=== PATIENT | female | born 1965 | race Caucasian/White ===

== ENCOUNTER 2016-09-03 17:44 | Observation (INO) | payer BC ==
[2016-09-03 18:36] LABS: Hematocrit 42 % (35-47); Hemoglobin 13.8 g/dl (12.0-16.0); Mean Corpuscular HGB Conc 33 g/dl (31-36); Mean Corpuscular Hemoglobin 30 pg (27-31); Mean Corpuscular Volume 92 fL (80-97); Mean Platelet Volume 7 um3 (7.4-10.4); Red Blood Count 4.53 10^6/ul (4.0-5.4); Red Cell Distribution Width 13 % (10.5-15); White Blood Count 6.3 10^3/ul (3.5-10.8)
[2016-09-03 18:57] LABS: Troponin I 0.01 ng/mL (<0.04)
[2016-09-03 18:58] LABS: Albumin 4.6 g/dL (3.2-5.2); BUN/Creatinine Ratio 15.7 (8-20); Calcium 9.3 mg/dL (8.6-10.3); EGFR Non-African American 87.9 (>60); Globulin 2.7 g/dL (2-4); Potassium 3.5 mmol/L (3.5-5.0); Total Bilirubin 0.5 mg/dL (0.2-1.0); Total Protein 7.3 g/dL (6.4-8.9)
--- NOTE | 2016-09-03 19:04 | RAD ---
HISTORY: Chest pain, pneumonia, CHF COMPARISONS: None VIEWS: 2: Frontal dual-energy and lateral views of the chest. FINDINGS: CARDIOMEDIASTINAL SILHOUETTE: The cardiomediastinal silhouette is normal. SEBASTIAN: The sebastian are normal. PLEURA: The costophrenic angles are sharp. No pleural abnormalities are noted. LUNG PARENCHYMA: The lungs are clear. ABDOMEN: The upper abdomen is clear. There is no subphrenic gas. BONES AND SOFT TISSUES: No bone or soft tissue abnormalities are noted. OTHER: None. IMPRESSION: NO ACTIVE CARDIOPULMONARY DISEASE.
--- NOTE | 2016-09-03 19:21 | ED ---
Jh Mendoza Billy, scribed for Elie Lainez MD on 09/03/16 at 1816 . HPI Chest Pain - HPI Summary HPI Summary: Patient is a 50 year-old female coming to [facility] for evaluation of intermittent left anterior chest pain for the last several days, worse since 1330 today. Patient describes each episode of chest tightness lasting approximately 5 minutes followed by periods of dull burning pain in between. Pain is nonradiating and it seems to have no known cause or triggers; it is unassociated with food, rest, or exertion. She has not woken up from sleep due to this pain. She denies any swelling in the legs, but she states that her calves feel "tight." Patient has a history of SBO 1 year ago and a history of Lyme disease several years ago, but is otherwise generally quite healthy. To her knowledge, she has no first-degree relatives with heart disease or blood clots. - History of Current Complaint Chief Complaint: EDChestWallPain Time Seen by Provider: 09/03/16 18:01 Hx Obtained From: Patient Onset/Duration: Started Days Ago, Still Present, Worse Since - 1330 Time of Onset: 13:30 Timing: Intermittent Initial Severity: Moderate Current Severity: Moderate Pain Intensity: 3 Pain Scale Used: 0-10 Numeric Chest Pain Location: Left Anterior Chest Pain Radiates: No Character: Burning, Dull/Aching, Tightness Aggravating Factor(s): Nothing Alleviating Factor(s): Nothing Associated Signs and Symptoms: Positive: Chest Pain, Other: - calf "tightness". Negative: Shortness of Breath, Calf Pain/Swelling - Allergy/Home Medications Allergies/Adverse Reactions: Allergies Allergy/AdvReac Type Severity Reaction Status Date / Time Aspirin Allergy GI Upset Verified 09/03/16 18:19 PMH/Surg Hx/FS Hx/Imm Hx Endocrine/Hematology History: Denies: Hx Diabetes Cardiovascular History: Denies: Hx Hypercholesterolemia, Hx Hypertension, Hx Myocardial Infarction GI History: Reports: Hx Obstructive Bowel - SBO in 2016 Infectious Disease History: No Infectious Disease History: Denies: Traveled Outside the [place] in Last 30 Days - Family History Family History: Father of a stroke at age 70. Mother with a history of hypertension. To the patient's knowledge, no first-degree relatives with history of heart disease or blood clots. - Social History Occupation: Employed Full-time Lives: With Family Alcohol Use: Occasionally Hx Substance Use: No Substance Use Type: Reports: None Hx Tobacco Use: No Smoking Status (MU): Never Smoked Tobacco Review of Systems Positive: Palpitations, Chest Pain Negative: Shortness Of Breath Positive: Other - calves feel "tight". Negative: Edema All Other Systems Reviewed And Are Negative: Yes Physical Exam - Summary Physical Exam Summary: The patient is well-nourished in no acute distress and in no acute pain. The skin is warm and dry and skin color reflects adequate perfusion. HEENT: The head is normocephalic and atraumatic. The pupils are equal and reactive. The conjunctivae are clear and without drainage. Nares are patent and without drainage. Mouth reveals moist mucous membranes and the throat is without erythema and exudate. The external ears are intact. The ear canals are patent and without drainage. The tympanic membranes are intact. Neck is supple with full range of motion and non-tender. There are no carotid bruits. There is no neck vein distension. Respiratory: Chest is non-tender. Lungs are clear to auscultation and breath sounds are symmetrical and equal. Cardiovascular: Hear is regular rate and rhythm. Positive murmur. There is no peripheral edema and pulses are symmetrical and equal. Abdomen: The abdomen is soft and non-tender. There are normal bowel sounds heard in all four quadrants and there is no organomegaly palpated. Musculoskeletal: There is no back pain noted. Extremities are non-tender with full range of motion. There is good capillary refill. There is no peripheral edema or calf tenderness elicited. Neurological: Patient is alert and oriented to person, place and time. The patient has symmetrical motor strength in all four extremities. Psychiatric: The patient has an appropriate affect and does not exhibit any anxiety or depression. Triage Information Reviewed: Yes Vital Signs On Initial Exam: Initial Vitals Temp Pulse Resp BP Pulse Ox 97.4 F 79 18 157/89 100 09/03/16 17:46 09/03/16 17:46 09/03/16 17:46 09/03/16 17:46 09/03/16 17:46 Vital Signs Reviewed: Yes Diagnostics - Vital Signs Vital Signs Temp Pulse Resp BP Pulse Ox 09/03/16 18:09 98.8 F 71 20 152/94 99 09/03/16 17:46 97.4 F 79 18 157/89 100 - Laboratory Lab Results: Lab Results 09/03/16 09/03/16 09/03/16 Range/Units 18:25 18:25 18:25 WBC 6.3 (3.5-10.8) 10^3/ul RBC 4.53 (4.0-5.4) 10^6/ul Hgb 13.8 (12.0-16.0) g/dl Hct 42 (35-47) % MCV 92 (80-97) fL MCH 30 (27-31) pg MCHC 33 (31-36) g/dl RDW 13 (10.5-15) % Plt Count 307 (150-450) 10^3/ul MPV 7 L (7.4-10.4) um3 Neut % (Auto) 59.1 (38-83) % Lymph % (Auto) 32.1 (25-47) % Trimble % (Auto) 7.2 (1-9) % Eos % (Auto) 1.2 (0-6) % Baso % (Auto) 0.4 (0-2) % Absolute Neuts (auto) 3.7 (1.5-7.7) 10^3/ul Absolute Lymphs (auto) 2.0 (1.0-4.8) 10^3/ul Absolute Monos (auto) 0.4 (0-0.8) 10^3/ul Absolute Eos (auto) 0.1 (0-0.6) 10^3/ul Absolute Basos (auto) 0 (0-0.2) 10^3/ul Absolute Nucleated RBC 0 10^3/ul Nucleated RBC % 0 INR (Anticoag Therapy) (0.89-1.11) D-Dimer, Quantitative (Less Than 230) ng/mL Sodium 140 (133-145) mmol/L Potassium 3.5 (3.5-5.0) mmol/L Chloride 106 (101-111) mmol/L Carbon Dioxide 26 (22-32) mmol/L Anion Gap 8 (2-11) mmol/L BUN 11 (6-24) mg/dL Creatinine 0.70 (0.51-0.95) mg/dL Est GFR ( Amer) 113.0 (>60) Est GFR (Non-Af Amer) 87.9 (>60) BUN/Creatinine Ratio 15.7 (8-20) Glucose 93 (70-100) mg/dL Lactic Acid 0.7 (0.5-2.0) mmol/L Calcium 9.3 (8.6-10.3) mg/dL Total Bilirubin 0.50 (0.2-1.0) mg/dL AST 20 (13-39) U/L ALT 10 (7-52) U/L Alkaline Phosphatase 81 (34-104) U/L Troponin I 0.01 (<0.04) ng/mL B-Natriuretic Peptide ( - 100) pg/mL Total Protein 7.3 (6.4-8.9) g/dL Albumin 4.6 (3.2-5.2) g/dL Globulin 2.7 (2-4) g/dL Albumin/Globulin Ratio 1.7 (1-3) 09/03/16 09/03/16 Range/Units 18:25 18:25 WBC (3.5-10.8) 10^3/ul RBC (4.0-5.4) 10^6/ul Hgb (12.0-16.0) g/dl Hct (35-47) % MCV (80-97) fL MCH (27-31) pg MCHC (31-36) g/dl RDW (10.5-15) % Plt Count (150-450) 10^3/ul MPV (7.4-10.4) um3 Neut % (Auto) (38-83) % Lymph % (Auto) (25-47) % Trimble % (Auto) (1-9) % Eos % (Auto) (0-6) % Baso % (Auto) (0-2) % Absolute Neuts (auto) (1.5-7.7) 10^3/ul Absolute Lymphs (auto) (1.0-4.8) 10^3/ul Absolute Monos (auto) (0-0.8) 10^3/ul Absolute Eos (auto) (0-0.6) 10^3/ul Absolute Basos (auto) (0-0.2) 10^3/ul Absolute Nucleated RBC 10^3/ul Nucleated RBC % INR (Anticoag Therapy) 0.90 (0.89-1.11) D-Dimer, Quantitative 217 (Less Than 230) ng/mL Sodium (133-145) mmol/L Potassium (3.5-5.0) mmol/L Chloride (101-111) mmol/L Carbon Dioxide (22-32) mmol/L Anion Gap (2-11) mmol/L BUN (6-24) mg/dL Creatinine (0.51-0.95) mg/dL Est GFR ( Amer) (>60) Est GFR (Non-Af Amer) (>60) BUN/Creatinine Ratio (8-20) Glucose (70-100) mg/dL Lactic Acid (0.5-2.0) mmol/L Calcium (8.6-10.3) mg/dL Total Bilirubin (0.2-1.0) mg/dL AST (13-39) U/L ALT (7-52) U/L Alkaline Phosphatase (34-104) U/L Troponin I (<0.04) ng/mL B-Natriuretic Peptide 39 ( - 100) pg/mL Total Protein (6.4-8.9) g/dL Albumin (3.2-5.2) g/dL Globulin (2-4) g/dL Albumin/Globulin Ratio (1-3) Result Diagrams: 09/03/16 18:25 09/03/16 18:25 Lab Statement: Any lab studies that have been ordered have been reviewed, and results considered in the medical decision making process. - Radiology CXR Xray Interpretation: No Acute Changes Radiology Interpretation Completed By: Radiologist - EKG 180 EKG Interpretation: NSR 61 bpm, normal axis, no STEMI Re-Evaluation - Re-Evaluation First Eval Re-Evaluation Time: 19:03 Comment: Labs reviewed. Patient agrees with plan for admission. Chest Pain Course/Dx - Course Assessment/Plan: 50 year-old female coming to [facility] with complaint of chest pain for the last several days. CXR shows no acute disease. EKG shows NSR with no STEMI. Labs reviewed, troponin 0.01. Patient care discussed with Arlyn Roth NP, who will be admitting the patient to [facility]. - Chest Pain Differential Diagnosis/HQI/PQRI: Acute IL, ACS, Chest Wall, GI Disease, Lower Respiratory Infection, Pulmonary Embolism - Diagnoses Provider Diagnoses: Chest pain - Provider Notifications Discussed Care Of Patient With: Arlyn Roth NP (hospitalist) @ 1903: accepts admission. Discharge - Discharge Plan Condition: Stable Disposition: ADMITTED TO [facility] Referrals: No Primary Care Phys,NOPCP [Primary Care Provider] - The documentation as recorded by the Jh alvarenga Billy accurately reflects the service I personally performed and the decisions made by me, Elie Lainez MD.
[2016-09-03] MEDS ORDERED: Aspirin TAB* 325 MG PO ONE (19:38)
--- NOTE | 2016-09-03 23:48 | HP ---
MEDICINE HISTORY AND PHYSICAL: DATE OF ADMISSION: 09/03/16 PROVIDER: Castillo Chowdary NP ATTENDING PHYSICIAN: Leona Gonzales MD *(dictated by Castillo Chowdary NP) PRIMARY CARE PHYSICIAN: No local primary care physician. CHIEF COMPLAINT: Chest pain. HISTORY OF PRESENT ILLNESS: Ms. Page is a 50-year-old female with no significant past medical history of Lyme disease. She came in to the ER for evaluation of chest tightness. Ms. Page described pressure and squeezing around her heart and states that it feels like a tightness and warmth at the site of her heart and around the area surrounding it. This started at approximately 1:30 this afternoon. She notices it under her left breast and denies any radiation to any other locations including shoulders, back, jaw, or arms. The pain comes and goes and lasts for a couple of minutes. She cannot differentiate whether it is better with activity or rest, but notices it at both times. The tightness lasts for about 5 minutes and then scales down to a dull burning sensation. She also describes some sensation of having a racing heartbeat as well as skipping beats and some accompanying dizziness this afternoon with the episode. She reports heart palpitations in the past and states today was different due to the extent of the tightness she was feeling. She denies any nausea, vomiting, or diaphoresis. She denies any recent illness or subjective fevers or chills. Her only complaint was a sinus infection approximately 1 to 2 weeks ago. She denies any shortness of breath, cough, abdominal pain, nausea, vomiting, or diarrhea. She denies any focal weakness, tingling, numbness, sensory loss. She denies any vision, hearing or swallowing complaints. Denies any joint pains or muscle pains, rashes or lesions. The patient states that she had Lyme disease approximately 8 years ago that was treated, and her last hospitalization was for a small bowel obstruction that occurred last year around the same time. During that admission, she had noted that she had episodes of racing heartbeats and she states that she was put on a Holter monitor for 24 hours with no significant findings. The patient and her have recently moved up to the [facility] from [place], [place]. PAST MEDICAL HISTORY: 1. Lyme disease, occurred approximately 8 years ago. 2. History of small bowel obstruction. HOME MEDICATIONS: None. ALLERGIES: The patient lists ASPIRIN as an allergy, which is actually an adverse reaction causing GI upset. FAMILY HISTORY: She does not know of any family members with any history of coronary artery disease or MIs. She does not know of any family members with history of blood clots. She does report a mother with hypertension and that her father had of a stroke. SOCIAL HISTORY: She denies any current or former tobacco use. She reports rare alcohol use. She denies any drug use. 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 She is . Her , Ashok Page, is her surrogate decision maker and he brought her to the emergency. REVIEW OF SYSTEMS: A 14-point review of systems was completed. All pertinent positives and negatives are included in the HPI, all others were negative. PHYSICAL EXAMINATION GENERAL: Ms. Page is a 50-year-old female who is lying in the ED stretcher , in no acute distress. VITAL SIGNS: Temperature 98.8, heart rate 52, respiratory rate 15, blood pressure 142/82, and O2 saturation 99% on room air. HEENT: Head is atraumatic, normocephalic. Face is symmetrical. Pupils are equal and reactive to light and accommodation. Sclerae are anicteric. External ears and nose are normal. Oral mucosa appears moist. There is no oropharyngeal erythema or exudate. NECK: Supple with full range of motion. No lymphadenopathy noted. There are no carotid bruits. There is no JVD noted. RESPIRATORY: Chest is nontender to palpation. Lung are clear to auscultation. CARDIAC: S1, S2 heart sounds, regular rate and rhythm. No murmurs, rubs, or gallops. No peripheral edema is noted. Distal pulses are 2+. ABDOMEN: Soft, nontender, nondistended. Bowel sounds are present times all 4 quadrants. MUSCULOSKELETAL: There is no clubbing or cyanosis. The patient has full range of motion. SKIN: Limited examination, but appears grossly intact. NEUROLOGIC: The patient is alert and oriented x3. Cranial nerves II through XII are grossly intact. She moves all extremities. Sensation is intact to light touch to the lower extremities. PSYCH: Her affect is appropriate. LABORATORY DATA/DIAGNOSTIC STUDIES: CBC: WBC is 6.3, hemoglobin 13.8, hematocrit 42, platelet count 307. INR 0.9. D-dimer 217. CMP: Sodium 140, potassium 3.5, chloride 106, carbon dioxide 26, BUN 11, creatinine 0.7, glucose 73. Lactic acid 0.7. Calcium 9.3, total bilirubin 0.5, AST 20, ALT 10, alk phos 81. Troponin 0.01. BNP 39. Albumin 4.6. The patient's EKG shows sinus rhythm with no ischemic changes. Her chest x-ray shows no acute pathology. There are no old medical records for review. ASSESSMENT AND PLAN: Ms. Page is a 50-year-old female with no significant past medical history, who presents today with complaints of chest pain. Our plan is to admit her under observation. Recommendations are as follows: 1. Chest pain. Admit to telemetry in observation status. We will trend her troponins, obtain a stress test in the morning. The patient is low in risk factors with a BELKIS score of 0; however, due to she recently moved up here, she has no local PCP, it appears that she will not be able to follow up in the near future. We will go ahead and have her perform a stress test here while admitted. She also gives a story that sounds as if she has perhaps some ectopy or arrhythmias. However, nothing has been noted in the ER. We will continue to monitor on telemetry and see if this is the case. I did discuss with the patient that it will be beneficial for her to establish a PCP locally as she would most likely benefit from outpatient Holter monitor to further evaluate for these periods of skipped and racing heartbeats. As she does not have a PCP , the patient and her are concerned about their insurance and the coverage here locally, I have ordered a Social Work consult to assist with this. Currently, the patient's troponin is negative and there are no EKG changes of concern. We will recheck an EKG in the morning as well as lipid profile and continue to monitor. The patient will be n.p.o. after midnight for the stress test. I did also order aspirin and discussed this with Nursing. The patient had at first declined the aspirin as she has it listed as an allergy ; however, her main complaint with aspirin is GI upset. I discussed if she was able to take this with food, this would be beneficial as it is a standard of care for cardiac workup. 2. DVT prophylaxis. The patient is a 1 on DVT risk assessment, which is low risk. She is ordered KAREN stockings. 3. FEN. She is ordered a heart healthy diet and she will be n.p.o. after midnight. 4. Code status. She is a full code. TIME SPENT: Time spent on the admission was approximately 50 minutes, more than half the time was spent [id number] with the patient obtaining history and physical, performing the physical examination, and reviewing the plan of care. Plan of care was also reviewed with my attending, Dr. Gonzales, who is in agreement. CASTILLO CHOWDARY, EDGE STRIPPER [id number]/CPS #: [id number] [place]
[2016-09-04 05:15] LABS: HDL Cholesterol 53.5 mg/dL
[2016-09-04] MEDS ORDERED: Acetaminophen TAB* 325 MG PO PRN (06:41)
--- NOTE | 2016-09-04 08:14 | PN ---
Subjective Date of Service: 09/04/16 Interval History: Patient seen and examined at bedside. She denies any further episode of racing heartbeat, palpitations, chest tightness/squeezing overnight. Denies fever/ chills, SOB, abd pain, n/v. She is sleeping intermittently in room. No acute concerns from nursing. Telemetry: SR 60s Family History: Unchanged from Admission Social History: Unchanged from Admission Past Medical History: Unchanged from Admission Objective Active Medications: Acetaminophen (Tylenol Tab*) 650 mg PO Q4H PRN PRN Reason: PAIN/FEVER Last Admin: 09/04/16 06:47 Dose: 650 mg Aspirin (Aspirin Low Dose Tab*) 81 mg PO DAILY CAMPOS Vital Signs 09/03/16 09/03/16 09/03/16 19:30 19:35 19:47 Temperature 97.8 F Pulse Rate 66 60 67 Respiratory 17 16 12 Rate Blood Pressure 123/81 131/76 (mmHg) O2 Sat by Pulse 99 100 97 Oximetry 09/03/16 09/03/16 09/04/16 20:00 23:29 03:36 Temperature 98.4 F 98.3 F Pulse Rate 62 59 61 Respiratory 20 20 20 Rate Blood Pressure 135/79 109/66 109/71 (mmHg) O2 Sat by Pulse 97 99 98 Oximetry Oxygen Devices in Use Now: None Appearance: Female patient, lying in bed, in NAD Eyes: PERRLA Ears/Nose/Mouth/Throat: Clear Oropharnyx, Mucous Membranes Moist Neck: NL Appearance and Movements; NL JVP Respiratory: Symmetrical Chest Expansion and Respiratory Effort, Clear to Auscultation Cardiovascular: NL Sounds; No Murmurs; No JVD, RRR Abdominal: NL Sounds; No Tenderness; No Distention Extremities: No Edema, No Clubbing, Cyanosis Skin: No Rash or Ulcers Neurological: Alert and Oriented x 3 Lines/Tubes/Other Access: Clean, Dry and Intact Peripheral IV Result Diagrams: 09/03/16 18:25 09/03/16 18:25 Additional Lab and Data: Lab Results 09/03/16 09/03/16 09/03/16 Range/Units 18:25 18:25 18:25 WBC 6.3 (3.5-10.8) 10^3/ul RBC 4.53 (4.0-5.4) 10^6/ul Hgb 13.8 (12.0-16.0) g/dl Hct 42 (35-47) % MCV 92 (80-97) fL MCH 30 (27-31) pg MCHC 33 (31-36) g/dl RDW 13 (10.5-15) % Plt Count 307 (150-450) 10^3/ul MPV 7 L (7.4-10.4) um3 Neut % (Auto) 59.1 (38-83) % Lymph % (Auto) 32.1 (25-47) % Brown % (Auto) 7.2 (1-9) % Eos % (Auto) 1.2 (0-6) % Baso % (Auto) 0.4 (0-2) % Absolute Neuts (auto) 3.7 (1.5-7.7) 10^3/ul Absolute Lymphs (auto) 2.0 (1.0-4.8) 10^3/ul Absolute Monos (auto) 0.4 (0-0.8) 10^3/ul Absolute Eos (auto) 0.1 (0-0.6) 10^3/ul Absolute Basos (auto) 0 (0-0.2) 10^3/ul Absolute Nucleated RBC 0 10^3/ul Nucleated RBC % 0 INR (Anticoag Therapy) (0.89-1.11) D-Dimer, Quantitative (Less Than 230) ng/mL Sodium 140 (133-145) mmol/L Potassium 3.5 (3.5-5.0) mmol/L Chloride 106 (101-111) mmol/L Carbon Dioxide 26 (22-32) mmol/L Anion Gap 8 (2-11) mmol/L BUN 11 (6-24) mg/dL Creatinine 0.70 (0.51-0.95) mg/dL Est GFR ( Amer) 113.0 (>60) Est GFR (Non-Af Amer) 87.9 (>60) BUN/Creatinine Ratio 15.7 (8-20) Glucose 93 (70-100) mg/dL Lactic Acid 0.7 (0.5-2.0) mmol/L Calcium 9.3 (8.6-10.3) mg/dL Total Bilirubin 0.50 (0.2-1.0) mg/dL AST 20 (13-39) U/L ALT 10 (7-52) U/L Alkaline Phosphatase 81 (34-104) U/L Troponin I 0.01 (<0.04) ng/mL B-Natriuretic Peptide ( - 100) pg/mL Total Protein 7.3 (6.4-8.9) g/dL Albumin 4.6 (3.2-5.2) g/dL Globulin 2.7 (2-4) g/dL Albumin/Globulin Ratio 1.7 (1-3) 09/03/16 09/03/16 Range/Units 18:25 18:25 WBC (3.5-10.8) 10^3/ul RBC (4.0-5.4) 10^6/ul Hgb (12.0-16.0) g/dl Hct (35-47) % MCV (80-97) fL MCH (27-31) pg MCHC (31-36) g/dl RDW (10.5-15) % Plt Count (150-450) 10^3/ul MPV (7.4-10.4) um3 Neut % (Auto) (38-83) % Lymph % (Auto) (25-47) % Brown % (Auto) (1-9) % Eos % (Auto) (0-6) % Baso % (Auto) (0-2) % Absolute Neuts (auto) (1.5-7.7) 10^3/ul Absolute Lymphs (auto) (1.0-4.8) 10^3/ul Absolute Monos (auto) (0-0.8) 10^3/ul Absolute Eos (auto) (0-0.6) 10^3/ul Absolute Basos (auto) (0-0.2) 10^3/ul Absolute Nucleated RBC 10^3/ul Nucleated RBC % INR (Anticoag Therapy) 0.90 (0.89-1.11) D-Dimer, Quantitative 217 (Less Than 230) ng/mL Sodium (133-145) mmol/L Potassium (3.5-5.0) mmol/L Chloride (101-111) mmol/L Carbon Dioxide (22-32) mmol/L Anion Gap (2-11) mmol/L BUN (6-24) mg/dL Creatinine (0.51-0.95) mg/dL Est GFR ( Amer) (>60) Est GFR (Non-Af Amer) (>60) BUN/Creatinine Ratio (8-20) Glucose (70-100) mg/dL Lactic Acid (0.5-2.0) mmol/L Calcium (8.6-10.3) mg/dL Total Bilirubin (0.2-1.0) mg/dL AST (13-39) U/L ALT (7-52) U/L Alkaline Phosphatase (34-104) U/L Troponin I (<0.04) ng/mL B-Natriuretic Peptide 39 ( - 100) pg/mL Total Protein (6.4-8.9) g/dL Albumin (3.2-5.2) g/dL Globulin (2-4) g/dL Albumin/Globulin Ratio (1-3) Assess/Plan/Problems-Billing Assessment: Ms. Page is a 50 yo female with a PMH of lyme disease (8 years ago) and SBO who presented to the ED on 09/03/16 with concern for chest pain and racing heartbeat. - Patient Problems (1) Chest pain Code(s): R07.9 - CHEST PAIN, UNSPECIFIED Comment: Somewhat atypical in presentation, with accompanying c/o racing heartbeat/ "skipped beats" Troponins negative, no ischemic changes to EKG Stress test today: no chest pain or EKG changes for ischemia, no wall motion abnormalities, no defects of stress-induced or fixed nature. Patient likely to benefit from outpatient Holter monitor. (2) DVT prophylaxis Code(s): ODM8047 - Comment: Early ambulation TEDs Status and Disposition: OBV admit. D/c to home when medically stable.
[2016-09-04] MEDS ORDERED: Aspirin Low Dose CHEW TAB* 81 MG PO SCH (09:00)
--- NOTE | 2016-09-04 11:45 | RAD ---
INDICATION: Chest pain COMPARISON: None TECHNIQUE: A single day SPECT protocol was utilized. Rest images were acquired following the intravenous injection of 10.1 millicuries of technetium 99m tetrofosmin. Exercise stress images were acquired following the intravenous administration of 25.6 millicuries of technetium 99m tetrofosmin. The patient was exercised to a peak heart rate of 159 which is 95% of age predicted maximum. FINDINGS: There are no defects of the stress-induced or fixed nature. The cardiac chamber size is normal. There are no wall motion abnormalities. The ejection fraction is calculated at 73 percent during stress. IMPRESSION: NEGATIVE EXAMINATION ASSESSMENT: LOW-RISK Based on imaging criteria from ACC/AHA 2002 Guideline Update for the Management of Patients With Chronic Stable Angina Table 23. Noninvasive Risk Stratification.
[2016-09-04 14:12] VITALS: BP 108/67
--- NOTE | 2016-09-05 04:42 | DS ---
AMENDED REPORT NOW INCLUDES COSIGNER - ESIGNED BEFORE ADJUSTMENT MEDICINE DISCHARGE SUMMARY: DATE OF ADMISSION: 09/03/16 DATE OF DISCHARGE: 09/04/16 PROVIDER: Castillo Roth NP ATTENDING PHYSICIAN: Dr. Danii Cullen *(as dictated by Castillo Roth NP). PRIMARY CARE PROVIDER: The patient does not have a PCP. PRIMARY DISCHARGE DIAGNOSIS: Chest pain. MEDICATIONS AT DISCHARGE: None. HOSPITAL COURSE OF STAY: For full details, please refer to the H and P provided on 09/03/16. In summary, Ms. Page is a 50-year-old female who was admitted to the ER with concern for chest pain, racing heart beat, and palpitations. It started approximately 1:30 in the afternoon on 09/03/16. The patient states that she has had previous symptoms like this but has never sought attention for it. This particular event was more severe than previous events, and she came into the ER for further evaluation. Her troponins were negative. However, we did admit her for observation overnight. No arrhythmic events were noted on telemetry, and there were no ectopic events noted as well. The patient did undergo a stress test, which showed a baseline EKG with normal sinus rhythm. Below average workload but achieved more than 85% of MPHR. No chest pain. No arrhythmias. No ST-T changes for ischemia. Her nuclear medicine scan portion of stress test showed no defects of the stress induced or fixed nature. No wall motion abnormalities. Her ejection fraction was calculated at 73% during stress, negative examination, and low risk. The patient has had no further events of racing heart beat, palpitations, or chest pain here in the hospital. We did discuss having the patient pursue an outpatient Holter monitor with her PCP, which she is in agreement with. Due to recent relocation to the region, the patient does not yet have a PCP. Our Social Work and discharge planning department is working with the patient to help with her insurance and obtain a PCP. The patient was also given the physician referral information if she chooses to pursue this on her own. The patient was advised to follow up with her new PCP within 1 to 2 weeks. She was also advised to return to the ER if there are any concerning symptoms in the interim period if she is unable to establish with a PCP prior to that point. The patient verbalizes understanding. CONCERNS AT DISCHARGE: Ms. Page will be discharged to home on 09/04/16 with a plan to establish and follow up with a new PCP. Social Work and discharge planning team are meeting with the patient to help coordinate this. DIET: May resume previous diet. ACTIVITY: As tolerated. CONDITION: Stable. DISPOSITION: To home. TIME SPENT: Time spent on this discharge was approximately 40 minutes. Again, this is only a brief summary of the patient's hospital course of stay. For full details, please refer to the full medical record. If you have any further questions or any further assistance, please feel free to contact me at [place] [id number]/[facility] #: [id number] [facility]
== END 2016-09-04 15:15 | disposition home or self-care (01) ==
LOC: ED 17:44 → MEDTELE 19:03
PROVIDERS: ADMIT Internal Medicine; ATTEND Hospitalist
DX: R07.9 Chest pain, unspecified (principal); R42 Dizziness and giddiness; Z88.6 Allergy status to analgesic agent
CPT/HCPCS: 36415; 71020; 78452; 80053; 80061; 83605; 83880; 84484; 85025; 85379; 85610; 93005; 93017; 99283; A9270-GY; A9502; G0378

== ENCOUNTER 2018-01-09 03:48 | Inpatient (IN) | payer BC ==
[2018-01-09] MEDS ORDERED: NS 0.9% 1000 ML* 1,000 ML IV ONE ×2 (04:42→05:24)
[2018-01-09] MEDS ORDERED: Metoclopramide IV* 5 MG/ML 2 ML VIAL IV ONE (04:42)
[2018-01-09] MEDS ORDERED: Morphine INJ* 2 MG/ML 1 ML SYRINGE (TWO MG - NEW SYRINGE VERSION) IV ONE ×2 (04:42→05:24)
[2018-01-09] MEDS ORDERED: Morphine VIAL* 10 MG/ML 1 ML VIAL IV ONE (05:00)
[2018-01-09 05:05] LABS: ABS Basophils 0 10^3/ul (0-0.2); ABS Eosinophils 0 10^3/ul (0-0.6); ABS Lymphocytes 0.6 10^3/ul (1.0-4.8); ABS Monocytes 0.4 10^3/ul (0-0.8); ABS Neutrophils 5.8 10^3/ul (1.5-7.7); ABS Nucleated RBC 0 10^3/ul; Eosinophil % 0.2 % (0-6); Hematocrit 44 % (35-47); Lymphocyte % 9.3 % (25-47); Mean Corpuscular HGB Conc 34 g/dl (31-36); Mean Corpuscular Hemoglobin 31 pg (27-31); Mean Corpuscular Volume 91 fL (80-97); Mean Platelet Volume 6.8 um3 (7.4-10.4); Nucleated Red Blood Cells % 0; Platelet Count 272 10^3/ul (150-450); Red Blood Count 4.82 10^6/ul (4.00-5.40); Red Cell Distribution Width 13 % (10.5-15); White Blood Count 6.9 10^3/ul (3.5-10.8)
[2018-01-09 05:14] LABS: INR 0.89 (0.77-1.02)
[2018-01-09] MEDS ORDERED: Morphine VIAL* 10 MG/ML 1 ML VIAL ONE (05:39)
[2018-01-09] MEDS ORDERED: Benzocaine/Butamben/Tetracain* SPRAY TOPICAL ONE (05:50)
[2018-01-09] MEDS ORDERED: Iohexol 300* (CONTRAST) 10 ML SDV IV ONE (06:49)
--- NOTE | 2018-01-09 07:33 | ED ---
Abdominal Pain/Female - HPI Summary HPI Summary: This is colette Prajapati documenting for Dr. Osmany Fitzgerald. Pt is 52 y/o F who presents to ED c/o abdominal pain since 6 pm this evening. The pain does not radiate to back. Rates her pain as an 8/10 in severity. Notes vomiting and nausea. Last bowel movement yesterday morning. PMHx of SBO. PSHx of appendectomy. Physical exam revealed diffuse abdominal tenderness and hyperactive bowel sounds. - History of Current Complaint Chief Complaint: EDAbdPain Stated Complaint: SEVERE ABD PAIN Time Seen by Provider: 01/09/18 03:55 Hx Obtained From: Patient Onset/Duration: Lasting Hours Severity Currently: Severe Pain Intensity: 8 Pain Scale Used: 0-10 Numeric Radiates: No Associated Signs and Symptoms: Positive: Nausea, Vomiting Allergies/Adverse Reactions: Allergies Allergy/AdvReac Type Severity Reaction Status Date / Time aspirin Allergy Abdominal Verified 01/09/18 04:02 Pain PMH/Surg Hx/FS Hx/Imm Hx Endocrine/Hematology History: Reports: Other Endocrine/Hematological Disorders - lyme's disease Denies: Hx Diabetes Cardiovascular History: Reports: Hx Angina Denies: Hx Coronary Artery Disease, Hx Hypercholesterolemia, Hx Hypertension , Hx Myocardial Infarction, Hx Valvular Heart Disease Respiratory History: Denies: Hx Asthma, Hx Chronic Obstructive Pulmonary Disease (COPD) GI History: Reports: Hx Obstructive Bowel - SBO in 2016 Sensory History: Reports: Hx Contacts or Glasses Denies: Hx Hearing Aid Opthamlomology History: Reports: Hx Contacts or Glasses - Surgical History Surgery Procedure, Year, and Place: hernia repair Infectious Disease History: No Infectious Disease History: Denies: Traveled Outside the [place] in Last 30 Days - Family History Known Family History: Positive: Other - SBO Family History: Father of a stroke at age 70. Mother with a history of hypertension. To the patient's knowledge, no first-degree relatives with history of heart disease or blood clots. - Social History Alcohol Use: Weekly Alcohol Amount: 1 beer Hx Substance Use: No Substance Use Type: Reports: None Hx Tobacco Use: No Smoking Status (MU): Never Smoked Tobacco Review of Systems Positive: Abdominal Pain, Vomiting, Nausea Positive: Other - NEGATIVE: back pain All Other Systems Reviewed And Are Negative: Yes Physical Exam - Summary Physical Exam Summary: VITAL SIGNS: Reviewed. GENERAL: Patient is a well-developed and nourished female who is lying comfortable in the stretcher. Patient is not in any acute respiratory distress. HEAD AND FACE: No signs of trauma. No ecchymosis, hematomas or skull depressions. No sinus tenderness. EYES: PERRLA, EOMI x 2, No injected conjunctiva, no nystagmus. EARS: Hearing grossly intact. Ear canals and tympanic membranes are within normal limits. MOUTH: Oropharynx within normal limits. NECK: Supple, trachea is midline, no adenopathy, no JVD, no carotid bruit, no c- spine tenderness, neck with full ROM. CHEST: Symmetric, no tenderness at palpation LUNGS: Clear to auscultation bilaterally. No wheezing or crackles. CVS: Regular rate and rhythm, S1 and S2 present, no murmurs or gallops appreciated. ABDOMEN: Diffuse abdominal tenderness. No signs of distention. No rebound no guarding, and no masses palpated. Hyperactive bowel sounds. EXTREMITIES: FROM in all major joints, no edema, no cyanosis or clubbing. NEURO: Alert and oriented x 3. No acute neurological deficits. Speech is normal and follows commands. SKIN: Dry and warm Triage Information Reviewed: Yes Vital Signs On Initial Exam: Initial Vitals Temp Pulse Resp BP Pulse Ox 98.7 F 79 22 144/91 99 01/09/18 03:59 01/09/18 03:59 01/09/18 03:59 01/09/18 03:59 01/09/18 03:59 Vital Signs Reviewed: Yes Diagnostics - Vital Signs Vital Signs Temp Pulse Resp BP Pulse Ox 01/09/18 06:29 82 16 158/103 97 01/09/18 06:01 77 30 95 01/09/18 05:59 80 22 159/96 96 01/09/18 05:41 15 01/09/18 05:29 77 20 141/88 97 01/09/18 05:01 74 13 98 01/09/18 05:00 75 20 145/91 99 01/09/18 04:52 16 01/09/18 04:29 72 14 171/109 98 01/09/18 03:59 98.7 F 79 22 144/91 99 - Laboratory Lab Results: Lab Results 01/09/18 01/09/18 01/09/18 Range/Units 04:54 04:54 04:54 WBC 6.9 (3.5-10.8) 10^3/ul RBC 4.82 (4.00-5.40) 10^6/ul Hgb 15.0 (12.0-16.0) g/dl Hct 44 (35-47) % MCV 91 (80-97) fL MCH 31 (27-31) pg MCHC 34 (31-36) g/dl RDW 13 (10.5-15) % Plt Count 272 (150-450) 10^3/ul MPV 6.8 L (7.4-10.4) um3 Neut % (Auto) 84.6 H (38-83) % Lymph % (Auto) 9.3 L (25-47) % [place] % (Auto) 5.4 (0-7) % Eos % (Auto) 0.2 (0-6) % Baso % (Auto) 0.5 (0-2) % Absolute Neuts (auto) 5.8 (1.5-7.7) 10^3/ul Absolute Lymphs (auto) 0.6 L (1.0-4.8) 10^3/ul Absolute Monos (auto) 0.4 (0-0.8) 10^3/ul Absolute Eos (auto) 0 (0-0.6) 10^3/ul Absolute Basos (auto) 0 (0-0.2) 10^3/ul Absolute Nucleated RBC 0 10^3/ul Nucleated RBC % 0 INR (Anticoag Therapy) 0.89 (0.77-1.02) APTT 28.9 (26.0-36.3) seconds Sodium 137 (135-145) mmol/L Potassium 3.6 (3.5-5.0) mmol/L Chloride 104 (101-111) mmol/L Carbon Dioxide 22 (22-32) mmol/L Anion Gap 11 (2-11) mmol/L BUN 13 (6-24) mg/dL Creatinine 0.65 (0.51-0.95) mg/dL Est GFR ( Amer) 114.9 (>60) Est GFR (Non-Af Amer) 95.0 (>60) BUN/Creatinine Ratio 20.0 (8-20) Glucose 143 H (70-100) mg/dL Lactic Acid (0.5-2.0) mmol/L Calcium 9.7 (8.6-10.3) mg/dL Magnesium 2.0 (1.9-2.7) mg/dL Total Bilirubin 0.50 (0.2-1.0) mg/dL AST 20 (13-39) U/L ALT 9 (7-52) U/L Alkaline Phosphatase 94 (34-104) U/L C-Reactive Protein 4.90 (<8.01) mg/L Total Protein 7.6 (6.4-8.9) g/dL Albumin 4.6 (3.2-5.2) g/dL Globulin 3.0 (2-4) g/dL Albumin/Globulin Ratio 1.5 (1-3) Amylase 21 L (29-103) U/L Lipase 12 (11.0-82.0) U/L Blood Type Antibody Screen 01/09/18 01/09/18 Range/Units 04:54 04:54 WBC (3.5-10.8) 10^3/ul RBC (4.00-5.40) 10^6/ul Hgb (12.0-16.0) g/dl Hct (35-47) % MCV (80-97) fL MCH (27-31) pg MCHC (31-36) g/dl RDW (10.5-15) % Plt Count (150-450) 10^3/ul MPV (7.4-10.4) um3 Neut % (Auto) (38-83) % Lymph % (Auto) (25-47) % [place] % (Auto) (0-7) % Eos % (Auto) (0-6) % Baso % (Auto) (0-2) % Absolute Neuts (auto) (1.5-7.7) 10^3/ul Absolute Lymphs (auto) (1.0-4.8) 10^3/ul Absolute Monos (auto) (0-0.8) 10^3/ul Absolute Eos (auto) (0-0.6) 10^3/ul Absolute Basos (auto) (0-0.2) 10^3/ul Absolute Nucleated RBC 10^3/ul Nucleated RBC % INR (Anticoag Therapy) (0.77-1.02) APTT (26.0-36.3) seconds Sodium (135-145) mmol/L Potassium (3.5-5.0) mmol/L Chloride (101-111) mmol/L Carbon Dioxide (22-32) mmol/L Anion Gap (2-11) mmol/L BUN (6-24) mg/dL Creatinine (0.51-0.95) mg/dL Est GFR ( Amer) (>60) Est GFR (Non-Af Amer) (>60) BUN/Creatinine Ratio (8-20) Glucose (70-100) mg/dL Lactic Acid 0.9 (0.5-2.0) mmol/L Calcium (8.6-10.3) mg/dL Magnesium (1.9-2.7) mg/dL Total Bilirubin (0.2-1.0) mg/dL AST (13-39) U/L ALT (7-52) U/L Alkaline Phosphatase (34-104) U/L C-Reactive Protein (<8.01) mg/L Total Protein (6.4-8.9) g/dL Albumin (3.2-5.2) g/dL Globulin (2-4) g/dL Albumin/Globulin Ratio (1-3) Amylase (29-103) U/L Lipase (11.0-82.0) U/L Blood Type O Positive Antibody Screen Negative Result Diagrams: 01/09/18 04:54 01/09/18 04:54 Lab Statement: Any lab studies that have been ordered have been reviewed, and results considered in the medical decision making process. - Radiology CXR Radiology Interpretation Completed By: ED Physician - No acute findings, pending official report. Abdomen X-ray Radiology Interpretation Completed By: ED Physician - Shows SBO, pending official report. - EKG 04:14 Cardiac Rate: NL - 72 bpm EKG Rhythm: Sinus Rhythm EKG Interpretation: Normal axis. Normal interval. No ischemic changes. Re-Evaluation - Re-Evaluation First Eval Change: Unchanged - Vision with ongoing pain. History of complicated ruptured appendix at age 8. This is likely the source of her small bowel obstruction with a transition point in the terminal ileum area. Discussed the case again with the surgery Dr. Stock and also with Dr. Mitchell from hospitalist service who accepted admit the patient. Abdominal Pain Fem Course/Dx - Course Course Of Treatment: Pt is 52 y/o F who presents to ED c/o abdominal pain since 6 pm this evening. The pain does not radiate to back. Rates her pain as an 8/10 in severity. Notes vomiting and nausea. Last bowel movement yesterday morning. PMHx of SBO. PSHx of appendectomy. Physical exam revealed diffuse abdominal tenderness and hyperactive bowel sounds. EKG at 04:14 reveals normal sinus rhythm at 72 bpm with normal axis, normal interval, and no ischemic changes. CXR showed no acute courses, pending official report. Abdomen X-Ray showed SBO, pending official report. In ED course pt was given fluids, morphine, and reglan. Spoke with Dr. Stock who asked for a CAT scan. Pt is signed out to Dr. Milton awaiting CAT scan. - Diagnoses Provider Diagnoses: Small bowel obstruction - Provider Notifications Discussed Care Of Patient With: Alberto Stock - Asked for CAT scan. Time Discussed With Above Provider: 06:00 Discharge - Sign-Out/Discharge Documenting (check all that apply): Patient Departure Signing out patient TO: Mikel Milton - Discharge Plan Condition: Fair Disposition: ADMITTED TO [facility] Referrals: No Primary Care Phys,NOPCP [Primary Care Provider] - - Billing Disposition and Condition Condition: FAIR Disposition: Admitted to [facility]
[2018-01-09 07:37] LABS: Urine Appearance Clear; Urine Blood Negative (Negative); Urine Color Yellow; Urine Ketones Trace (Negative); Urine Protein Negative (Negative); Urine Specific Gravity 1.011 (1.010-1.030); Urine Urobilinogen Negative (Negative)
--- NOTE | 2018-01-09 08:13 | RAD ---
Indication: Small bowel obstruction Contrast: Administered 91.1 ml of OMNIPAQUE 300 mg/ml CT of the abdomen and pelvis was performed after oral and IV contrast administration. Coronal and sagittal reconstructed images were obtained. No prior study is available for comparison The lung bases demonstrate no pleural fluid, nodules or masses. Heart is of normal size without evidence of pericardial effusion. Liver is normal in size. No focal lesions or intrahepatic duct dilatation is noted. A small amount of perihepatic ascites is noted. The gallbladder demonstrates no calcified gallstones. No pericholecystic fluid or wall thickening is noted. Pancreas demonstrates no mass or pancreatic duct dilatation. Spleen is normal in size. No adrenal masses are noted. The kidneys demonstrate symmetric nephrograms without focal lesions. Aorta and inferior vena cava are unremarkable. CT of the pelvis demonstrates the uterus and ovaries to be unremarkable. The colon is collapsed. There are dilated loops of small bowel with air-fluid levels noted. There is collapsed terminal ileum noted. This is consistent with a distal small bowel obstruction. There is suggestion of a zone of transition in the right lower quadrant near the right adnexa. Small amount of free fluid is noted in the pelvis. No pelvic adenopathy is noted. Surgical clips from left-sided hernia repair is present. The bony structures are grossly unremarkable. IMPRESSION: Dilated loops of small bowel with collapsed terminal ileum. These are consistent with small bowel obstruction. Collapsed distal ileum is noted. A small amount of free fluid is noted. There is suggestion of a zone of transition in the right lower quadrant adjacent to the right adnexa.
--- NOTE | 2018-01-09 08:35 | RAD ---
Indication: Abdominal pain. Flat and upright views of the abdomen demonstrates moderately dilated loops of small bowel with air-fluid levels. There is a possibility of gas in the colon and findings are suspicious for small bowel obstruction. Organ silhouettes are unremarkable. IMPRESSION: Findings suggestive of small bowel obstruction. R0
--- NOTE | 2018-01-09 08:35 | RAD ---
Indication: Abdominal pain. Single frontal view of the chest performed at 0521 hours was reviewed. Comparison is made with previous exam dated September 03, 2016. No mediastinal shift is noted. Heart is of normal size and configuration. Lung mccarthy appear clear. IMPRESSION: NO ACTIVE CARDIOPULMONARY DISEASE IS NOTED. R0
--- NOTE | 2018-01-09 08:36 | ED ---
Progress - Progress Note Progress Note: This is colette Senior documenting for attending Mikel Milton MD. This patient was signed out from Dr. Fitzgerald awaiting CT ABD/Pelvis. CT ABD/ Pelvis reveals, per radiology, Dilated loops of small bowel with collapsed terminal ileum. These are consistent with small bowel obstruction. Collapsed distal ileum is noted. A small amount of free fluid is noted. There is suggestion of a zone of transition in the right lower quadrant adjacent to the right adnexa. Dr. Milton has reviewed this report. Course/Dx - Course Course Of Treatment: Patient with history of complex postsurgical course from appendectomy as a child now with her second small bowel obstruction with transition point in the right lower quadrant. Admit to hospitalist. - Diagnoses Provider Diagnoses: Small bowel obstruction - Provider Notifications Discussed Care Of Patient With: Alberto Stock Time Discussed With Above Provider: 08:23 Instructed by Provider To: Other - He recommened admitting the patient. Discharge - Sign-Out/Discharge Documenting (check all that apply): Patient Departure - admitted , Receiving Sign-Out Receiving patient FROM: Osmany Fitzgerald - Discharge Plan Condition: Fair Disposition: ADMITTED TO [facility] - Billing Disposition and Condition Condition: FAIR Disposition: Admitted to [facility] Consult Consult: 08:40 We discussed patient care with Dr. Mitchell, hospitalist and they have accepted the patient for admission.
[2018-01-09] MEDS: Ondansetron INJ* 2 MG/ML VIAL IV PRN ×2 (09:08→18:00)
[2018-01-09] MEDS: NS 0.9% 1000 ML* 1,000 ML IV SCH ×2 (09:08→18:00)
[2018-01-09] MEDS: Morphine INJ* 2 MG/ML 1 ML SYRINGE (TWO MG - NEW SYRINGE VERSION) IV PRN ×2 (09:13→11:08)
--- NOTE | 2018-01-09 13:15 | CONS ---
CONSULTATION REPORT: DATE OF CONSULT: 01/09/18 REFERRING PROVIDER: Dr. Bryce Mitchell, Hospitalist. REASON FOR CONSULTATION: Small bowel obstruction and abdominal pain. HISTORY OF PRESENT ILLNESS: Ms. Kallie Page is a healthy 52-year-old woman who presented to the emergency room early this morning with about 12 hours of severe, crampy, intermittent abdominal discomfort. This was associated with nausea and small amount of retching, but no voluminous amounts of bilious vomiting. She last had her normal bowel movement yesterday, has not been passing flatus. She states she has been pain free in between episodes of crampy pain. She states she underwent an open appendectomy for a complicated perforated appendicitis when she was 8 years old and living in [place] and 2 years ago, had similar symptoms and was admitted to a hospital in [place] where she used to live for several days for a small bowel obstruction, which resolved nonoperatively. She states her symptoms back then were very similar to what she is experiencing now. In the emergency room, she was noted to be afebrile. No tachycardia. All of her laboratory values including her white blood cell count and renal function were unremarkable. She underwent a CT scan of the abdomen and pelvis. I did review these images. This does show dilated proximal small bowel with a distally collapsed terminal ileum. There is small amount of free fluid around the liver. There was suggestion of a transition point in the right lower quadrant. She has been admitted to the hospitalist service after a nasogastric tube insertion and surgical consultation was obtained. PAST MEDICAL HISTORY: Unremarkable. PAST SURGICAL HISTORY: 1. Open appendectomy. 2. Open left inguinal hernia repair with mesh. MEDICATIONS: None. ALLERGIES: She has no known drug allergies. 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 She does not use alcohol. She smokes occasional cigarette. REVIEW OF SYSTEMS: Cerebrovascular: No dizziness or visual disturbances. Cardiovascular: No chest pain or shortness of breath. Pulmonary: No wheezing or hemoptysis. GI: As per above. : No urgency or hematuria. PHYSICAL EXAM: Temperature 98.6, pulse 61, blood pressure 135/72. In general, well-developed, slender female who appeared to be slightly uncomfortable when she has intermittent episodes of cramps. She is awake, alert and conversive and otherwise quite pleasant. Lungs were clear to auscultation with normal respiratory effort. Heart was regular rate and rhythm without murmurs, rubs or gallops. Her abdomen is soft and nondistended. She had some bowel sounds throughout, but these are not high-pitched or tinkling nor they particularly hyperactive. She has a well- healed right paramidline incision in the lower abdomen that extends somewhat medially down in the pubic area. She also has a well-healed left inguinal hernia incision without evidence of recurrent hernia. She had some mild tenderness throughout, but no guarding, rigidity or peritoneal irritation. IMPRESSION: Small bowel obstruction, most likely secondary to adhesions from previous intraabdominal surgery as per above. There does appear to be a transition point and some collapsed distal small bowel on the CT scan. She has had similar episode several years ago, which was treated in the hospital in [place] nonoperatively and she has done well since that time. At this point, she shows no signs of requiring urgent or emergent laparotomy, i.e., she has no fever, tachycardia, peritoneal irritation or leukocytosis. 1. Plan is to be admitted to the hospitalist service with nasogastric tube insertion. 2. She will be kept n.p.o. and started on IV fluids. 3. I will repeat abdominal x-rays tomorrow, follow the course of the oral contrast. 4. I discussed all of the planned care with her. Hopefully in the next 24 to 48 hours, this will resolve spontaneously, but if there is no improvement in the next several days or if pain worsens in severity or clinical status changes , she will require laparoscopy and possible laparotomy. Thank you for this consultation. We will follow her closely with you. [id number]/[facility] #: [id number] [facility]
[2018-01-09] MEDS ORDERED: Morphine VIAL* 4 MG/ML VIAL (1 ml vial) IV ONE (14:02)
[2018-01-09] MEDS: Morphine VIAL* 4 MG/ML VIAL (1 ml vial) IV PRN (18:00)
--- NOTE | 2018-01-09 20:59 | HP ---
HISTORY AND PHYSICAL: DATE OF ADMISSION: 01/09/18 TIME OF MY EVALUATION: 9 a.m. PRIMARY CARE PROVIDER: None. HISTORY OF PRESENT ILLNESS: Ms. Page is a 52-year-old woman, generally healthy, who presents with abdominal pain since the evening prior to this admission. 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 She had dinner at around 5 p.m. and starting at 6 p.m., she had abdominal pain and cramps that were nonradiating, but intense. She rated the pain at 8 to 10/10 in severity. There was vomiting and nausea. She did have a bowel movement today prior to admission and she does have a known history of a small bowel obstruction and this presentation was similar to previous episodes of obstruction. Her surgical history is noteworthy for a complex appendectomy that was at age 8 in [place] and she had other episodes of small bowel obstruction in [place] that resolved without surgical intervention. The patient has not been having voluminous amounts of bilious vomiting, but upon having an NG tube placed, 300 cc of bilious fluid was attained. The patient is afebrile. Her vital signs are stable. She has normal white blood cell count. Her renal function is unremarkable - she is not septic. The patient had a CT abdomen and pelvis in the emergency room that showed dilated proximal small bowel with distal collapsed terminal ileum. There was a small amount of free fluid around the liver. There was a transition point suggested in the right lower quadrant. Again, the patient was referred for the hospitalist to admit for conservative management of her small bowel obstruction and she has an NGT in situ to intermittent suction. PAST MEDICAL HISTORY: Open appendectomy and open left inguinal hernia repair with mesh, both many years ago. OUTPATIENT MEDICATIONS: None. ALLERGIES: No known drug allergies. 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 She lives in [facility]. She does not drink alcohol, but smokes an occasional cigarette. She is a full code. Surrogate decision maker is indeed her . REVIEW OF SYSTEMS: Review of 14 systems was accomplished at the bedside. This is largely negative except for the pertinent positives mentioned above in the past medical history and history of present illness. Of note, the patient has no cardiac, pulmonary, GI, , cerebrovascular, or endocrinologic symptoms. PHYSICAL EXAMINATION On admission: GENERAL APPEARANCE: Generally, the patient looks like a well developed, well nourished woman who appears uncomfortable with intermittent episodes of cramps. VITAL SIGNS: Temperature 98 degrees Fahrenheit, pulse 60s, blood pressure 130s/ 70s. HEENT: Oropharynx is clear. Mucous membranes are moist. No posterior pharyngeal erythema or exudate. LYMPH: No adenopathy in the inguinal area. CHEST: Lungs clear to auscultation anteriorly, posteriorly. No increased work of breathing or accessory muscle use. HEART: Regular rate and rhythm. No murmurs, rubs, or gallops. Normal S1, normal S2. ABDOMEN: Diffusely tender, but mainly in the right lower quadrant. The patient has a well healed lateral to midline incision in the lower abdomen extending medially to the pubic area. The patient has tenderness throughout, but no guarding, rigidity, or peritoneal irritation. NEURO: No sensory, motor proprioception or reflex component deficiencies. ADMISSION DATA: Chemistries include a sodium of 137, potassium 3.6, chloride 104, bicarb 22, anion gap 11, BUN 13, creatinine 0.65, glucose 143. Lactic acid 0.9. Calcium 9.7. Magnesium 2.0. Total bilirubin 0.5, AST 20, ALT 9, alk phos 94. CRP 4.9. Total protein 7.6, albumin 4.6, amylase 21, lipase 12. White blood cell count normal at 6.9, hemoglobin 15, platelets 272. INR 0.89 ( normal). Urinalysis negative in all respects. IMAGING: Abdominal/pelvis CT showed the previously referenced dilated loops of small bowel with distally collapsed terminal ileum with small amounts of free fluid around the liver and suggestion of transition point in the right lower quadrant. IMPRESSION: Ms. Page is a healthy 52-year-old woman with recurrent small bowel obstructions since abdominal surgeries dating back to her childhood. She has never required surgical intervention for a small bowel obstruction. She is admitted to the hospitalist service with a surgical consultation for conservative management of her small bowel obstruction. She does have a NG tube in place to intermittent low suction and if she can stabilize, perhaps, with hydration and pain control, she can avert a surgical intervention. Dr. Alberto Stock kindly saw the patient in consultation and he is involved in this case. She is receiving intravenous fluids and IV analgesics and further decisions will be based on her clinical course. She may require a laparoscopic intervention if her small bowel obstruction does not spontaneously resolve. TOTAL SPENT: Total time taken to admit Ms. Page was 65 minutes, greater than half the time was spent at bedside going over the history and physical examination [id number] with the patient explaining the hospital plan of care. [id number] #: [id number] MTDD
[2018-01-10] MEDS ORDERED: Acetaminophen SUPP* 650 MG SUPP PR PRN (03:02)
[2018-01-10] MEDS: NS 0.9% 1000 ML* 1,000 ML IV SCH ×2 (03:13→14:01)
[2018-01-10 05:47] LABS: ABS Basophils 0 10^3/ul (0-0.2); ABS Eosinophils 0 10^3/ul (0-0.6); ABS Lymphocytes 0.9 10^3/ul (1.0-4.8); ABS Monocytes 0.7 10^3/ul (0-0.8); ABS Neutrophils 7.9 10^3/ul (1.5-7.7); ABS Nucleated RBC 0 10^3/ul; Eosinophil % 0.1 % (0-6); Hematocrit 42 % (35-47); Hemoglobin 14.4 g/dl (12.0-16.0); Lymphocyte % 9.2 % (25-47); Mean Corpuscular HGB Conc 34 g/dl (31-36); Mean Corpuscular Hemoglobin 31 pg (27-31); Mean Corpuscular Volume 92 fL (80-97); Mean Platelet Volume 7.1 um3 (7.4-10.4); Nucleated Red Blood Cells % 0.2; Platelet Count 265 10^3/ul (150-450); Red Cell Distribution Width 14 % (10.5-15); White Blood Count 9.5 10^3/ul (3.5-10.8)
[2018-01-10 06:06] LABS: EGFR Non-African American 108.3 (>60)
--- NOTE | 2018-01-10 07:57 | RAD ---
INDICATION: Small bowel obstruction COMPARISON: January 09, 2018 TECHNIQUE: Erect and supine views of the abdomen are submitted. FINDINGS: Bones: There are no acute bony findings. Soft tissues: The soft tissues appear normal. The psoas margins are sharp. Bowel gas pattern: There are dilated loops of small bowel with scattered air-fluid levels. The small bowel loops measure up to 4.5 cm representing an interval worsening. There is a paucity of gas in the colon Calcifications: There are no abnormal calcifications. Other: None IMPRESSION: SMALL BOWEL OBSTRUCTION WITH MILD WORSENING.
--- NOTE | 2018-01-10 11:13 | PN ---
Progress Note - Progress Note Date of Service: 01/10/18 SOAP: Subjective: Much less abdominal pain today but no flatus or BM Ambulating in halls Objective: Temp Pulse Resp BP Pulse Ox 98.6 F 85 18 130/83 97 01/10/18 07:12 01/10/18 07:12 01/10/18 08:00 01/10/18 07:12 01/10/18 07:12 Intake & Output 01/08/18 01/09/18 01/10/18 01/11/18 06:59 06:59 06:59 06:59 Intake Total 1000 0 0 Output Total 1860 300 Balance 1000 -1860 -300 Weight 150 lb Intake: IV Fluids 1000 Oral 0 0 Output: NG Tube Drainage Amount 310 Urine 1050 300 Emesis 500 PEX: Comfortable Lungs are clear Abd is soft and slightly distended. Bowel sounds are decreased. Mild general tenderness without peritoneal irritation. Ext without edema Laboratory Results - last 24 hr 01/10/18 01/10/18 05:23 05:23 WBC 9.5 RBC 4.60 Hgb 14.4 Hct 42 MCV 92 MCH 31 MCHC 34 RDW 14 Plt Count 265 MPV 7.1 L Neut % (Auto) 83.3 H Lymph % (Auto) 9.2 L [place] % (Auto) 7.3 H Eos % (Auto) 0.1 Baso % (Auto) 0.1 Absolute Neuts (auto) 7.9 H Absolute Lymphs (auto) 0.9 L Absolute Monos (auto) 0.7 Absolute Eos (auto) 0 Absolute Basos (auto) 0 Absolute Nucleated RBC 0 Nucleated RBC % 0.2 Sodium 140 Potassium 3.6 Chloride 106 Carbon Dioxide 25 Anion Gap 9 BUN 14 Creatinine 0.58 Est GFR ( Amer) 131.1 Est GFR (Non-Af Amer) 108.3 BUN/Creatinine Ratio 24.1 H Glucose 115 H Calcium 8.9 AXR reviewed 01/10--still with distended small bowel, perhaps worsening from yesterday Assessment: SBO-persisting. Minimal NGT output with decreased abdominal pain but no flatus, BM. Remains afebrile, no tachycardia, exam rather benign, nl WBC Plan: Continue NGT suction NPO Increase activity Continue to follow-hopefully will improve with non-operative management. Discussed care with patient-if no improvement in 48-72 hours will have to consider OR.
--- NOTE | 2018-01-10 13:10 | PN ---
Subjective Date of Service: 01/10/18 Interval History: . pt doing well - still with abd pain, but less than previously - ambulating freely. NGT clamped for coffee (she c/o caffeine withdrawal headache) repeat imaging similar to previous ... perhaps a bit worse ... watchful waiting and close observation will transfer to surgical service as there are a paucity of medical problems. . Family History: Unchanged from Admission Social History: Unchanged from Admission Past Medical History: Unchanged from Admission Objective Active Medications: . Acetaminophen (Tylenol Supp*) 650 mg VT Q6H PRN PRN Reason: FEVER/PAIN Last Admin: 01/10/18 03:14 Dose: 650 mg Sodium Chloride (Ns 0.9% 1000 Ml*) 1,000 mls @ 100 mls/hr IV PER RATE CAMPOS Last Admin: 01/10/18 03:13 Dose: 100 mls/hr Morphine Sulfate (Morphine Vial*) 4 mg IV Q4H PRN PRN Reason: PAIN - MILD Last Admin: 01/09/18 18:00 Dose: 4 mg Ondansetron HCl (Zofran Inj*) 4 mg IV Q4H PRN PRN Reason: NAUSEA/VOMITING Last Admin: 01/09/18 18:00 Dose: 4 mg . Vital Signs - 8 hr 01/10/18 01/10/18 01/10/18 07:12 08:00 11:23 Temperature 98.6 F 98.8 F Pulse Rate 85 80 Respiratory 16 16 16 Rate Blood Pressure 130/83 143/87 (mmHg) O2 Sat by Pulse 97 98 Oximetry Oxygen Devices in Use Now: None Appearance: NAD Eyes: No Scleral Icterus Ears/Nose/Mouth/Throat: NL Teeth, Lips, Gums Neck: NL Appearance and Movements; NL JVP Respiratory: Symmetrical Chest Expansion and Respiratory Effort Cardiovascular: NL Sounds; No Murmurs; No JVD Abdominal: - - diffuse tenderness, high-pitched sounds. not acute abdomen. Lymphatic: No Cervical Adenopathy Extremities: No Edema Skin: No Rash or Ulcers Neurological: Alert and Oriented x 3 Lines/Tubes/Other Access: Clean, Dry and Intact Naso-enteral Tube, Clean, Dry and Intact Peripheral IV Nutrition: Taking PO's Result Diagrams: 01/10/18 05:23 01/10/18 05:23 Additional Lab and Data: . Assess/Plan/Problems-Billing . Assessment: 52 yo female with SBO and previous adhesions and similar presentations. NPO; NGT to low intermittent suction; clamping to attempt small liquid trial. surgical team following; will sign off but distantly follow in the event medical input is needed. Conservative management preferred, but dependent on clinical improvement. . - Patient Problems (1) Small bowel obstruction due to adhesions Current Visit: Yes Status: Acute Priority: High Code(s): K56.50 - INTESTNL ADHESIONS, UNSP TO PARTIAL VERSUS COMPLETE OBST
[2018-01-10] MEDS: Ondansetron INJ* 2 MG/ML VIAL IV PRN (17:01)
[2018-01-10] MEDS: Morphine VIAL* 4 MG/ML VIAL (1 ml vial) IV PRN (23:20)
[2018-01-11] MEDS: NS 0.9% 1000 ML* 1,000 ML IV SCH ×3 (00:07→21:20)
[2018-01-11 06:28] LABS: ABS Basophils 0 10^3/ul (0-0.2); ABS Eosinophils 0 10^3/ul (0-0.6); ABS Lymphocytes 1.3 10^3/ul (1.0-4.8); ABS Monocytes 0.8 10^3/ul (0-0.8); ABS Neutrophils 5.4 10^3/ul (1.5-7.7); ABS Nucleated RBC 0 10^3/ul; Eosinophil % 0.2 % (0-6); Hematocrit 40 % (35-47); Hemoglobin 13.6 g/dl (12.0-16.0); Lymphocyte % 17.6 % (25-47); Mean Corpuscular HGB Conc 34 g/dl (31-36); Mean Corpuscular Hemoglobin 31 pg (27-31); Mean Corpuscular Volume 91 fL (80-97); Mean Platelet Volume 7.2 um3 (7.4-10.4); Nucleated Red Blood Cells % 0; Platelet Count 245 10^3/ul (150-450); Red Blood Count 4.33 10^6/ul (4.00-5.40); Red Cell Distribution Width 13 % (10.5-15); White Blood Count 7.5 10^3/ul (3.5-10.8)
[2018-01-11] MEDS: Morphine VIAL* 4 MG/ML VIAL (1 ml vial) IV PRN (10:40)
--- NOTE | 2018-01-11 13:53 | PN ---
Progress Note - Progress Note Date of Service: 01/11/18 SOAP: Subjective: Patient intially seen at 0815 this morning and again just now. She remains slightly distended and has some intermittent crampy pain. No flatus or BM NGT with some darker bilious fluid in cannister. Objective: Temp Pulse Resp BP Pulse Ox 99.2 F 71 20 146/82 99 01/11/18 11:41 01/11/18 11:41 01/11/18 12:05 01/11/18 11:41 01/11/18 11:41 Intake & Output 01/09/18 01/10/18 01/11/18 01/12/18 06:59 06:59 06:59 06:59 Intake Total 1000 0 2315 Output Total 1860 2775 400 Balance 1000 -1860 -460 -400 Weight 150 lb Intake: IV Fluids 1000 1975 NS (0.9%) 985 Oral 0 340 Output: NG Tube Drainage Amount 310 1200 Urine 1050 1250 400 Emesis 500 325 Other: # Bowel Movements 0 PEX: Comfortable Lungs are clear Abd is soft and slightly distended. Bowel sounds are present but are not high pitched or tinkling. She has some mild diffuse tenderness without rebound or guarding. No hernias. Laboratory Results - last 24 hr 01/11/18 05:55 WBC 7.5 RBC 4.33 Hgb 13.6 Hct 40 MCV 91 MCH 31 MCHC 34 RDW 13 Plt Count 245 MPV 7.2 L Neut % (Auto) 71.2 Lymph % (Auto) 17.6 L [place] % (Auto) 10.7 H Eos % (Auto) 0.2 Baso % (Auto) 0.3 Absolute Neuts (auto) 5.4 Absolute Lymphs (auto) 1.3 Absolute Monos (auto) 0.8 Absolute Eos (auto) 0 Absolute Basos (auto) 0 Absolute Nucleated RBC 0 Nucleated RBC % 0 Assessment: SBO-Showing no signs of improvement with non-operative care. She continues to have some intermittent crampy abdominal pain but a rather benign exam. No fever, tachycardia and WBC remains normal. I discussed with her that she has had no improvement in 48 hours of non- operative care and with her continued complaints of crampy abdominal pain I think that she will require surgery. I discussed surgery with her including the procedure and the risks and benefits and I think that we should most likely proceed today. However, she does not have absolute indications for surgery today (afebrile, normal HR, rather benign exam, nl WBC) that it is also reasonable to continue our present care for another 24 hours and then re-assess in the morning. After our discussion she would like to continue our present care and if no improvement tomorrow we will proceed to surgery. Plan: NGT/NPO IV abx Ambulate
[2018-01-12] MEDS: NS 0.9% 1000 ML* 1,000 ML IV SCH ×2 (07:43→18:51)
--- NOTE | 2018-01-12 09:45 | PN ---
Progress Note - Progress Note Date of Service: 01/12/18 SOAP: Subjective: Multiple loose BM's overnight and passing flatus quite a bit No further crampy pain, still feels a little sore Required no pain meds overnight Ambulating in halls Objective: Temp Pulse Resp BP Pulse Ox 98.4 F 67 18 138/74 100 01/12/18 07:27 01/12/18 07:27 01/12/18 07:27 01/12/18 07:27 01/12/18 07:27 Intake & Output 01/10/18 01/11/18 01/12/18 01/13/18 06:59 06:59 06:59 06:59 Intake Total 0 2315 1231 985 Output Total 1860 2775 3735 300 Balance -1860 460 2504 685 Intake: IV Fluids 1975 1231 985 NS (0.9%) 985 1231 985 Oral 0 340 0 Output: NG Tube Drainage Amount 310 1200 1185 Urine 1050 1250 2550 300 Emesis 500 325 Other: # Bowel Movements 0 0 Estimated Stool Amount Large PEX: Comfortable Lungs are clear Abd is soft and non-distended. Bowel sounds are present and are normoactive, not high pitched or tinkling. Mild tenderness throughout, no guarding or rebound No labs Assessment: SBO-resolving with non-operative care Plan: D/C NGT Start diet See how she does, if tolerates po, probable d/c later today.
[2018-01-13] MEDS: NS 0.9% 1000 ML* 1,000 ML IV SCH (05:12)
[2018-01-13 08:09] VITALS: BP 135/76
--- NOTE | 2018-01-13 08:13 | PN ---
Progress Note - Progress Note Date of Service: 01/13/18 Note: S: cont to pass flatus; some loose stool; no sig pain; deanna clears well; feels ok to go home today O: Vital Signs - 8 hr 01/13/18 01/13/18 01/13/18 00:55 04:27 07:19 Temperature 98.5 F 98.6 F 98.5 F Pulse Rate 54 59 62 Respiratory 16 16 16 Rate Blood Pressure 121/67 135/78 135/76 (mmHg) O2 Sat by Pulse 98 99 99 Oximetry Intake and Output Last 24 Hours 01/11/18 01/12/18 01/13/18 01/14/18 06:59 06:59 06:59 06:59 Intake Total 2315 1231 5197 Output Total 2775 3735 2450 Balance -460 2501 2747 Intake: IV Fluids 1975 1231 3947 NS (0.9%) 985 1231 3947 Oral 340 0 1250 Output: NG Tube Drainage Amount 1200 1185 Urine 1250 2550 2450 Emesis 325 Other: # Bowel Movements 0 0 0 Estimated Stool Amount Large Gen: WN; NAD Heart: reg Lungs: clear ant Abd: mildly distended; +BS (normoactive); soft; mild RLQ and suprapubic tenderness; no sig tympany A: SBO, resolving P: ok for d/c; instructions reviewed; will discuss f/u w/ Dr. Stock
== END 2018-01-13 09:45 | disposition home or self-care (01) | DRG 247 ==
LOC: ED 03:48 → SSU 09:04 → OBSVTOIN 01-10 15:22
PROVIDERS: ADMIT Internal Medicine; ATTEND Surgery
PROC: 0D9670Z Drainage of Stomach with Drainage Device, Via Natural or Artificial Opening (ICD-10-PCS; principal; 2018-01-10)
DX: K56.50 Intestinal adhesions [bands], unspecified as to partial versus complete obstruction (principal); F17.210 Nicotine dependence, cigarettes, uncomplicated; Z82.49 Family history of ischemic heart disease and other diseases of the circulatory system; Z82.3 Family history of stroke
CPT/HCPCS: 36415; 71045; 74019; 74177; 80048; 80053; 81003; 82150; 83605; 83690; 83735; 85025; 85610; 85730; 86140; 86850; 86900; 86901; 93005; 99284; A9270-GY; G0378; J2270; J2405; J2765; Q9967

== ENCOUNTER 2019-05-11 04:06 | Inpatient (IN) | payer BC, MEDICAID ==
[2019-05-11] MEDS ORDERED: Morphine 4 MG/ML VIAL (1 ml) 4 MG/ML VIAL IV ONE (04:30)
[2019-05-11] MEDS ORDERED: Morphine 4 MG/ML VIAL (1 ml) 4 MG/ML VIAL IV PRN (04:30)
[2019-05-11] MEDS ORDERED: NS 0.9% 1000 ML** 2,000 ML IV ONE (04:30)
[2019-05-11] MEDS ORDERED: Ondansetron INJ* 2 MG/ML VIAL IV ONE (04:30)
--- NOTE | 2019-05-11 04:36 | ED ---
Abdominal Pain/Female - HPI Summary HPI Summary: Patient is a 53 y/o F presenting to the ED for a chief complaint of diffuse abdominal pain. Patient is present with her . She notes that the abdominal pain began at approximately 17:00 on 05/10/19 and has worsened since initial onset. She rates the pain as 8/10 in severity. She states she has been unable to sleep due to the pain. She admits nausea, but denies fever or vomiting. She denies any aggravating or alleviating factors. PMHx is significant for perforated appendix and small bowel obstruction and PSHx is significant for hernia repair. - History of Current Complaint Chief Complaint: EDAbdPain Stated Complaint: ABD PAIN PER PT Time Seen by Provider: 05/11/19 04:29 Hx Obtained From: Patient Onset/Duration: Sudden Onset, Still Present Timing: Constant Severity Initially: Severe Severity Currently: Severe Pain Intensity: 8 Pain Scale Used: 0-10 Numeric Location: Diffuse Radiates: No Aggravating Factor(s): Nothing Alleviating Factor(s): Nothing Associated Signs and Symptoms: Positive: Nausea. Negative: Fever, Vomiting Allergies/Adverse Reactions: Allergies Allergy/AdvReac Type Severity Reaction Status Date / Time aspirin Allergy Abdominal Verified 05/11/19 04:07 Pain PMH/Surg Hx/FS Hx/Imm Hx Previously Healthy: Yes Endocrine/Hematology History: Reports: Other Endocrine/Hematological Disorders - lyme's disease Denies: Hx Diabetes Cardiovascular History: Reports: Hx Angina Denies: Hx Coronary Artery Disease, Hx Hypercholesterolemia, Hx Hypertension , Hx Myocardial Infarction, Hx Valvular Heart Disease Respiratory History: Denies: Hx Asthma, Hx Chronic Obstructive Pulmonary Disease (COPD) GI History: Reports: Hx Obstructive Bowel - SBO in 2016 Sensory History: Reports: Hx Contacts or Glasses Denies: Hx Legally Blind, Hx Deafness, Hx Hearing Aid Opthamlomology History: Reports: Hx Contacts or Glasses Denies: Hx Legally Blind EENT History: Denies: Hx Deafness - Cancer History Hx Chemotherapy: No Hx Radiation Therapy: No - Surgical History Surgical History: Yes Surgery Procedure, Year, and Place: hernia repair Infectious Disease History: No Infectious Disease History: Denies: Traveled Outside the [place] in Last 30 Days - Family History Known Family History: Positive: Hypertension, Other - SBO Negative: Cardiac Disease, Blood Disorder Family History: Father of a stroke at age 70. Mother with a history of hypertension. To the patient's knowledge, no first-degree relatives with history of heart disease or blood clots. - Social History Lives: With Family Alcohol Use: Weekly Alcohol Amount: 1 beer Hx Substance Use: No Substance Use Type: Reports: None Hx Tobacco Use: No Smoking Status (MU): Never Smoked Tobacco Review of Systems Negative: Fever Positive: Abdominal Pain - Diffuse, Nausea. Negative: Vomiting All Other Systems Reviewed And Are Negative: Yes Physical Exam - Summary Physical Exam Summary: Appearance: Well-appearing, Well-nourished. Uncomfortable and in obvious pain. Skin: Warm, dry, no obvious rash Eyes: sclera anicteric, no conjunctival pallor ENT: mucous membranes moist, pharynx appears normal Neck: Supple, nontender Respiratory: Clear to auscultation, no signs of respiratory distress Cardiovascular: Normal S1, S2. No murmurs. Normal distal pulses in tibial and radial bilaterally. Abdomen: Soft, normal active bowel sounds present. Diffuse abdominal tenderness , difficult to get the patient to relax for the exam. Musculoskeletal: Normal, Strength/ROM Intact Neurological: A&Ox3, awake and alert, mentation is normal, speech is fluent and appropriate Psychiatric: affect is normal, does not appear anxious or depressed Triage Information Reviewed: Yes Vital Signs On Initial Exam: Initial Vitals Temp Pulse Resp BP Pulse Ox 98.0 F 87 18 162/128 85 05/11/19 04:07 05/11/19 04:07 05/11/19 04:07 05/11/19 04:07 05/11/19 04:07 Vital Signs Reviewed: Yes Procedures - Sedation Patient Received Moderate/Deep Sedation with Procedure: No Diagnostics - Vital Signs Vital Signs Temp Pulse Resp BP Pulse Ox 05/11/19 04:07 98.0 F 87 18 162/128 85 - Laboratory Result Diagrams: 05/12/19 05:42 05/13/19 07:37 Lab Statement: Any lab studies that have been ordered have been reviewed, and results considered in the medical decision making process. - CT Abdomen/Pelvis CT CT Interpretation Completed By: Radiologist Summary of CT Findings: Abdomen/Pelvis CT IMPRESSION: Pathologic distention of the small bowel consistent with a high-grade bowel obstruction. No bowel wall thickening or pneumatosis. Small quantity of fluid located in the abdomen and pelvis. Reviewed by Dr. Sanchez. Abdominal Pain Fem Course/Dx - Course Course Of Treatment: Patient is a 53 y/o F presenting to the ED for a chief complaint of diffuse abdominal pain. Patient is present with her . She notes that the abdominal pain began at approximately 17:00 on 05/10/19 and has worsened since initial onset. She rates the pain as 8/10 in severity. She states she has been unable to sleep due to the pain. She admits nausea, but denies fever or vomiting. She denies any aggravating or alleviating factors. PMHx is significant for perforated appendix and small bowel obstruction and PSHx is significant for hernia repair. On exam, uncomfortable and in obvious pain, diffuse abdominal tenderness, difficult to get the patient to relax for the exam. In the ED course, patient was given Compazine 10 mg IV, morphine 4 mg IV, Zofran 8 mg IV, and fluids. Laboratory abnormal findings: WBC 11.6, MPV 7.0, absolute neuts 10.3, absolute lymphs 0.9, BUN/creatinine ratio 20.3, glucose 153, alkaline phosphatase 105, lipase <10. Abdomen/Pelvis CT IMPRESSION : Pathologic distention of the small bowel consistent with a high-grade bowel obstruction. No bowel wall thickening or pneumatosis. Small quantity of fluid located in the abdomen and pelvis. Patient is a sign-out at 07:00 on 05/11/[address] Matti Sanchez MD to Dr. Ryan Chavarria MD at shift change, pending further workup and disposition. - Diagnoses Provider Diagnoses: Small bowel obstruction Discharge ED - Sign-Out/Discharge Documenting (check all that apply): Sign-Out Patient Signing out patient TO: Ryan Chavarria - Patient is a sign-out at 07:00 on 10/[address] Matti Sanchez MD to Dr. Ryan Chavarria MD at shift change, pending further workup and disposition. - Discharge Plan Condition: Improved Disposition: ADMITTED TO [facility] - Billing Disposition and Condition Condition: IMPROVED Disposition: Admitted to [facility] - Attestation Statements Document Initiated by Scribe: Yes Documenting Scribe: Lucretia Hodges Provider For Whom Scribe is Documenting (Include Credential): Matti Sanchez MD Scribe Attestation: Lucretia Mendoza, scribed for Matti Sanchez MD on 05/14/19 at 1917. Scribe Documentation Reviewed: Yes Provider Attestation: The documentation as recorded by the scribe, Lucretia Hodges accurately reflects the service I personally performed and the decisions made by me, Matti Sanchez MD Status of Scribe Document: Viewed
[2019-05-11] MEDS ORDERED: PROCHLORPERAZINE INJ 5 MG/ML 2 ML VIAL IV ONE (04:49)
[2019-05-11] MEDS ORDERED: Morphine 10 MG/ML VIAL (1 ml) IV ONE (04:49)
[2019-05-11 05:14] LABS: ABS Lymphocytes 0.9 10^3/ul (1.0-4.8); ABS Monocytes 0.4 10^3/ul (0-0.8); ABS Neutrophils 10.3 10^3/ul (1.5-7.7); Hematocrit 43 % (35-47); Hemoglobin 14.8 g/dL (12.0-16.0); Lymphocyte % 8.1 %; Mean Corpuscular HGB Conc 35 g/dL (31-36); Mean Corpuscular Hemoglobin 31 pg (27-31); Mean Corpuscular Volume 90 fL (80-97); Platelet Count 308 10^3/uL (150-450); Red Blood Count 4.71 10^6 /uL (3.70-4.87); Red Cell Distribution Width 13 % (10-15); White Blood Count 11.6 10^3/uL (3.5-10.8)
[2019-05-11 05:31] LABS: ALT 9 U/L (7-52); AST 16 U/L (13-39); Albumin 4.4 g/dL (3.2-5.2); Albumin/Globulin Ratio 1.7 (1-3); Alkaline Phosphatase 105 U/L (34-104); Anion Gap 10 mmol/L (2-11); BUN/Creatinine Ratio 20.3 (8-20); Blood Urea Nitrogen 13 mg/dL (6-24); CO2 Carbon Dioxide 23 mmol/L (22-32); Calcium 9.5 mg/dL (8.6-10.3); Chloride 108 mmol/L (101-111); EGFR African American 116.6 (>60); EGFR Non-African American 96.3 (>60); Globulin 2.6 g/dL (2-4); Glucose 153 mg/dL (70-100); Potassium 3.6 mmol/L (3.5-5.0); Sodium 141 mmol/L (135-145)
[2019-05-11] MEDS ORDERED: Iohexol 300* (CONTRAST) 10 ML SDV IV ONE (05:59)
--- NOTE | 2019-05-11 07:27 | ED ---
Progress - Progress Note Progress Note: Patient is a 53 y/o F presenting to the ED for a chief complaint of diffuse abdominal pain. Patient is a sign-out at 07:00 on 05/11/[address] Matti Sanchez MD to Dr. Ryan Chavarria MD at shift change, pending hospitalist consult and disposition. Course/Dx - Course Course Of Treatment: Patient is a 53 y/o F presenting to the ED for a chief complaint of diffuse abdominal pain. Patient is a sign-out at 07:00 on 05/11/[address] Matti Sanchez MD to Dr. Ryan Chavarria MD at shift change, pending hospitalist consult and disposition. Discussed patient case with kai Miranda, who evaluated the patient and accepted the patient for admission to [facility]. Patient will be admitted to [facility] with dx of small bowel obstruction. Patient understands and agrees with this plan. - Diagnoses Provider Diagnoses: Small bowel obstruction - Provider Notifications Discussed Care Of Patient With: Danii Cullen Time Discussed With Above Provider: 09:07 Instructed by Provider To: Admit As Inpatient - Discussed patient case with kai Miranda, who accepted the patient for admission to [facility]. Discharge ED - Sign-Out/Discharge Documenting (check all that apply): Patient Departure - Admit, Receiving Sign- Out Receiving patient FROM: Matti Sanchez - Discharge Plan Condition: Fair Disposition: ADMITTED TO [facility] - Billing Disposition and Condition Condition: FAIR Disposition: Admitted to [facility] - Attestation Statements Document Initiated by Reji: Yes Documenting Scribe: Negro Miller Provider For Whom Reji is Documenting (Include Credential): Ryan Chavarria MD Scribe Attestation: Negro Mendoza, scribed for Ryan Chavarria MD on 05/11/19 at 1900. Scribe Documentation Reviewed: Yes Provider Attestation: The documentation as recorded by the Negro alvarenga accurately reflects the service I personally performed and the decisions made by me, Ryan Chavarria MD Status of Scribe Document: Viewed Procedures - Sedation Patient Received Moderate/Deep Sedation with Procedure: No
[2019-05-11 10:25] LABS: Urine Appearance Clear; Urine Bilirubin Negative (Negative); Urine Blood Negative (Negative); Urine Color Yellow; Urine Glucose Negative (Negative); Urine Ketones Negative (Negative); Urine Nitrite Negative (Negative); Urine Protein Negative (Negative); Urine Specific Gravity > 1.060 (1.010-1.030); Urine Urobilinogen Negative (Negative)
[2019-05-11] MEDS: Morphine INJ* 2 MG/ML 1 ML SYRINGE (TWO MG - NEW SYRINGE VERSION) IV PRN ×2 (11:40→20:01)
[2019-05-11] MEDS: NS 0.9% 1000 ML** 1,000 ML IV SCH ×2 (11:40→21:57)
[2019-05-11] MEDS ORDERED: Phenol 1.4% Spray* 177 ML BTL MT PRN (18:34)
[2019-05-11] MEDS: Ondansetron INJ* 2 MG/ML VIAL IV PRN (18:58)
--- NOTE | 2019-05-11 20:30 | HP ---
CC: Dr. Juhi Pereira * HISTORY AND PHYSICAL: DATE OF ADMISSION: 05/11/19. PRIMARY CARE PROVIDER: Dr. Juhi Pereira at [facility]. CHIEF COMPLAINT: Abdominal pain and nausea. HISTORY OF PRESENT ILLNESS: Ms. Page is a 53-year-old female who has a history of 2 prior small bowel obstructions about a year and a half apart each, who states that she had been in her usual state of health up until approximately 5 p.m. on the day prior to admission when she developed crampy lower abdominal pain. The patient had no vomiting, but did develop nausea starting at approximately midnight. Her last episode of flatus was at midnight. Her last bowel movement was at approximately 5 p.m. the night prior to admission. That was noted to be diarrhea, which was abnormal. The patient denies any fevers or chills. Currently, she states that she is feeling okay, though the NG tube is bothering her throat. The previous small bowel obstructions resolved on their own. PAST MEDICAL HISTORY: None. PAST SURGICAL HISTORY: 1. Open appendectomy. 2. Open left inguinal hernia repair x2. 3. Tonsillectomy. 4. Dental surgeries. MEDICATIONS: None. ALLERGIES: ASPIRIN causes stomachache. FAMILY HISTORY: Mom is living, she is 80 and has hypertension. Dad at the age of 70 of CVA. SOCIAL HISTORY: The patient does smoke 3 to 5 cigarettes per day. She drinks few alcoholic beverages per week. 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 She is . She has 2 children. Her is present for the history and exam and is her healthcare proxy. REVIEW OF SYSTEMS: A complete 11-system review of systems is obtained. Pertinent positives and negatives are as per HPI and otherwise negative. PHYSICAL EXAMINATION GENERAL: The patient is a well-developed middle-aged female, seen sitting up in the stretcher, in no acute distress. VITAL SIGNS: Blood pressure 135/84, pulse 81, respiratory rate 18, temp 98. HEENT: Pupils are equal. Extraocular muscles are intact. Oropharynx is clear and moist. The patient has NG tube exiting the right nostril. NECK: There is no submandibular, cervical, or supraclavicular adenopathy. PULMONARY: Lungs are clear to auscultation bilaterally. CARDIAC: Normal S1, S2. Regular rate and rhythm. I do not appreciate any murmurs. There is no lower extremity edema. ABDOMEN: Bowel sounds are present. Abdomen is soft, mildly tender to palpation throughout. She is slightly distended. MUSCULOSKELETAL: There is no cyanosis or clubbing of the digits. There is full active range of motion of all 4 extremities. NEUROLOGIC: Cranial nerves II through XII are grossly intact. Sensation is intact to light touch throughout. Strength is 5/5 and symmetric in both upper and lower extremities bilaterally. PSYCH: The patient is alert. She is oriented x3 and affect appears appropriate. SKIN: Visible areas of skin are warm, dry, and without rash. DIAGNOSTIC STUDIES/LAB DATA: Labs: WBC 11.6, hemoglobin 14.8, hematocrit 43, platelets 308,000. Sodium 141, potassium 3.6, chloride 108, CO2 of 23, BUN 13, creatinine 0.64, glucose 153, calcium 9.5. Bilirubin 0.6. AST 16, ALT 9, alk phos 105, albumin 4.4, lipase less than 10. Urinalysis reveals a specific gravity of 1.060, and otherwise negative for signs of infection. Chest x-ray reveals no active cardiopulmonary disease and the NG tube appears to be in the stomach. CT abdomen and pelvis: There is pathologic distention in the small bowel consistent with high-grade bowel obstruction. No bowel wall thickening or pneumatosis was seen. Small quantity of fluid located in the abdomen and pelvis is noted. ASSESSMENT AND PLAN: Ms. Page is a 53-year-old female with a history of 2 prior small bowel obstructions in the setting of an individual, who has had 2 abdominal surgeries, who presented to the emergency room with complaints of abdominal pain and nausea and was found to have small bowel obstruction. 1. Small bowel obstruction. The patient will be admitted to the medical floor. She will be n.p.o. and the NG tube will be continued on the continuous low suction. Surgical consultation was requested through the emergency room. She will have morphine for pain and Zofran for nausea. Followup abdominal x- ray will be obtained tomorrow to evaluate for improvement in her small bowel obstruction. 2. DVT prophylaxis. According to the Adult Thrombosis Prophylaxis Risk Factor Assessment Guide, the patient has a total risk factor score of 1, making her low risk. Lovenox will be utilized as DVT prophylaxis. 3. Code status is full. TIME SPENT: 55 minutes were spent admitting this patient. [id number]/[facility] #: [id number] [place]
[2019-05-11] MEDS: Enoxaparin(*) 40 MG/0.4 ML SYR SUBCUT SCH (22:17)
[2019-05-12] MEDS: Morphine INJ* 2 MG/ML 1 ML SYRINGE (TWO MG - NEW SYRINGE VERSION) IV PRN ×3 (03:04→20:25)
[2019-05-12 06:08] LABS: Hematocrit 41 % (35-47); Hemoglobin 13.9 g/dL (12.0-16.0); Mean Corpuscular HGB Conc 34 g/dL (31-36); Mean Corpuscular Hemoglobin 31 pg (27-31); Mean Corpuscular Volume 92 fL (80-97); Mean Platelet Volume 6.8 fL (7.4-10.4); Platelet Count 271 10^3/uL (150-450); Red Blood Count 4.46 10^6 /uL (3.70-4.87); Red Cell Distribution Width 14 % (10-15); White Blood Count 10.8 10^3/uL (3.5-10.8)
[2019-05-12] MEDS: NS 0.9% 1000 ML** 1,000 ML IV SCH ×2 (08:01→22:00)
--- NOTE | 2019-05-12 09:17 | PN ---
Subjective Date of Service: 05/12/19 Interval History: Pt states she is feeling somewhat better today but continues to have abdominal pain. She has been trying to not use pain medication. She has not passed flatus or had a BM. She states she has a caffeine withdrawal headache. Objective Active Medications: Enoxaparin Sodium (Lovenox(*)) 40 mg SUBCUT Q24H [facility] Last Admin: 05/11/19 22:17 Dose: 40 mg Sodium Chloride (Ns 0.9% 1000 Ml) 1,000 mls @ 100 mls/hr IV PER RATE [facility] Last Admin: 05/12/19 08:01 Dose: 100 mls/hr Morphine Sulfate (Morphine Inj (Syringe))*) 4 mg IV Q4H PRN PRN Reason: PAIN - SEVERE Last Admin: 05/12/19 03:04 Dose: 4 mg Ondansetron HCl (Zofran Inj*) 4 mg IV Q6H PRN PRN Reason: NAUSEA Last Admin: 05/11/19 18:58 Dose: 4 mg Phenol/Menthol (Chloroseptic Throat [place]*) 2 spray MT Q4H PRN PRN Reason: SORE THROAT Vital Signs - 8 hr 05/12/19 05/12/19 05/12/19 03:04 03:43 04:22 Temperature 98.3 F Pulse Rate 73 Respiratory 20 16 16 Rate Blood Pressure 134/79 (mmHg) O2 Sat by Pulse 98 Oximetry 05/12/19 05/12/19 07:15 08:00 Temperature 98.9 F Pulse Rate 80 Respiratory 22 16 Rate Blood Pressure 135/83 (mmHg) O2 Sat by Pulse 97 Oximetry Oxygen Devices in Use Now: None Appearance: Middle aged female lying in bed, NAD Eyes: No Scleral Icterus Ears/Nose/Mouth/Throat: Mucous Membranes Moist Respiratory: Symmetrical Chest Expansion and Respiratory Effort, Clear to Auscultation Cardiovascular: NL Sounds; No Murmurs; No JVD, RRR, No Edema Abdominal: - - BS+ soft, mildly distended, moderately tender to palpation Extremities: No Clubbing, Cyanosis Skin: No Nodules or Sclerosis Neurological: Alert and Oriented x 3 Result Diagrams: 05/12/19 05:42 05/11/19 04:51 Assess/Plan/Problems-Billing Ms Page is a 53 yo F who has a h/o 2 prior SBOs who presented to the ER with c/o abdominal pain and nausea and was admitted for a SBO. - Patient Problems (1) Small bowel obstruction due to adhesions Current Visit: Yes Status: Acute Priority: High Code(s): K56.50 - INTESTNL ADHESIONS, UNSP TO PARTIAL VERSUS COMPLETE OBST SNOMED Code(s): 499998086 Comment: The patient unfortunately has another SBO. Will continue conservative treatment with NG tube drainage, nausea and pain control. Surgery consult requested. (2) DVT prophylaxis Current Visit: Yes Status: Acute Code(s): JSB8120 - SNOMED Code(s): 081310125 Comment: ambulation (3) Full code status Current Visit: Yes Status: Acute Code(s): Z78.9 - OTHER SPECIFIED HEALTH STATUS SNOMED Code(s): 266840241
[2019-05-12] MEDS: Ondansetron INJ* 2 MG/ML VIAL IV PRN ×2 (15:14→20:26)
--- NOTE | 2019-05-12 15:54 | PN ---
Progress Note - Progress Note Date of Service: 05/12/19 SOAP: Subjective: [] Mrs. Page is a pleasant 53 yo female with a PMH of two previous SBOs (2018 & 2016), with unfortunate recurrence of SBO on CT imaging two days prior. Persists on abdominal x-ray today. She states symptoms began 2 days ago prompting her to seek treatment. Pt presented to ED yesterday with complaint of diffuse abdominal pain and nausea. She rated her pain as an 8/10. She was hypertensive, afebrile and CBC was remarkable for mild leukocytosis. Pt received NGT and was placed on NPO diet. Chest x-ray confirmed appropriate placement of NGT. Pt states that her pain has been decreasing each day that she has spent in the hospital. She rates her current pain as a 6/10. She states that her last Morphine administration was at 03:00 this morning. She would prefer to use as little analgesia as possible. Pt reports that she experienced an episode of nausea and vomiting last evening. She states that her vomit was black and very malodorous. She states she is mildly nauseated but has not since vomited. Pt denies passing flatus or stool since the onset of her symptoms. She tells me she is urinating without difficulty, no blood in her urine. She reports the pain worsens with movement. She reports having a headache this AM that she relates to caffeine withdrawal. Pt states that she was given coffee and this has since resolved. She has tolerated small sips of coffee this morning without vomiting, mild nausea. Pt reports ambulating without assistance, abdominal pain worse when ambulating. Mrs. Page admits to past surgical history of an appendectomy at the age of 8 and left inguinal hernia repair. She denies fever, chills, fatigue, chest pain, cough and SOB. Objective: [] Vital Signs - 12 hr Temp Pulse Resp BP Pulse Ox 05/12/19 15:15 20 05/12/19 11:15 98.5 F 85 21 154/89 96 05/12/19 08:00 16 05/12/19 07:15 98.9 F 80 22 135/83 97 05/12/19 04:22 16 Intake & Output 05/12/19 05/12/19 05/12/19 06:59 14:59 22:59 Intake Total 800 2292 Output Total 900 Balance 800 1392 Intake: IV Fluids 800 2292 NS (0.9%) 800 2292 Oral 0 Output: NG Tube Drainage Amount 900 Other: # Bowel Movements 0 # Voids 0 05/11/19 05/11/19 05/11/19 04:51 04:51 09:13 WBC 11.6 H RBC 4.71 Hgb 14.8 Hct 43 MCV 90 MCH 31 MCHC 35 RDW 13 Plt Count 308 MPV 7.0 L Neut % (Auto) 88.5 Lymph % (Auto) 8.1 [place] % (Auto) 3.2 Eos % (Auto) 0.0 Baso % (Auto) 0.2 Absolute Neuts (auto) 10.3 H Absolute Lymphs (auto) 0.9 L Absolute Monos (auto) 0.4 Absolute Eos (auto) 0.0 Absolute Basos (auto) 0.0 Absolute Nucleated RBC 0.0 Nucleated RBC % 0.0 Sodium 141 Potassium 3.6 Chloride 108 Carbon Dioxide 23 Anion Gap 10 BUN 13 Creatinine 0.64 Est GFR ( Amer) 116.6 Est GFR (Non-Af Amer) 96.3 BUN/Creatinine Ratio 20.3 H Glucose 153 H Calcium 9.5 Total Bilirubin 0.60 AST 16 ALT 9 Alkaline Phosphatase 105 H Total Protein 7.0 Albumin 4.4 Globulin 2.6 Albumin/Globulin Ratio 1.7 Lipase < 10 L Urine Color Yellow Urine Appearance Clear Urine pH 6.0 Ur Specific [place] > 1.060 H Urine Protein Negative Urine Ketones Negative Urine Blood Negative Urine Nitrate Negative Urine Bilirubin Negative Urine Urobilinogen Negative Ur Leukocyte Esterase Negative Urine Glucose Negative 05/12/19 05:42 WBC 10.8 RBC 4.46 Hgb 13.9 Hct 41 MCV 92 MCH 31 MCHC 34 RDW 14 Plt Count 271 MPV 6.8 L Neut % (Auto) Lymph % (Auto) [place] % (Auto) Eos % (Auto) Baso % (Auto) Absolute Neuts (auto) Absolute Lymphs (auto) Absolute Monos (auto) Absolute Eos (auto) Absolute Basos (auto) Absolute Nucleated RBC Nucleated RBC % Sodium Potassium Chloride Carbon Dioxide Anion Gap BUN Creatinine Est GFR ( Amer) Est GFR (Non-Af Amer) BUN/Creatinine Ratio Glucose Calcium Total Bilirubin AST ALT Alkaline Phosphatase Total Protein Albumin Globulin Albumin/Globulin Ratio Lipase Urine Color Urine Appearance Urine pH Ur Specific [place] Urine Protein Urine Ketones Urine Blood Urine Nitrate Urine Bilirubin Urine Urobilinogen Ur Leukocyte Esterase Urine Glucose Abdomen/Pelvis CT IMPRESSION: Pathologic distention of the small bowel consistent with a high-grade bowel obstruction. No bowel wall thickening or pneumatosis. Small quantity of fluid located in the abdomen and pelvis. Abdominal XR IMPRESSION: Stable SBO with dilated loops up to 4.2cm. Examination: General: NAD, resting in bed. Intermittent episodes of pain during examination causing visible discomfort lasting for 15 seconds at a time. NGT in place and on suction, 100 cc of bilious gastric aspirate noted since emptying this AM. Pulmonary: CTA throughout. No signs of respiratory distress. Cardiovascular: Regular rate and rhythm. Abdomen: Hypoactive bowel sounds, nearly absent. Soft, non-distended. Tender to palpation throughout, greater tenderness in RUQ and LUQ. Peripheral Vascular: Pedal and radial pulses 2+ bilaterally. Calves soft and non -tender bilaterally. No peripheral edema. Assessment: [] Small Bowel Obstruction confirmed by CT imaging two days prior, persists on today's abdominal x-ray. Improvement of leukocytosis & pain, no flatus or BM. Pt is afebrile with a regular rate and rhythm. No immediate surgical concerns at this moment. Will continue to monitor. Plan: [] Continue NPO & NGT. Conservative management of symptoms at this moment. If symptoms persist or worsen, surgical intervention is indicated. Zofran as needed for relief of nausea. Discussed above with Dr. Hui. <Chico Londono - Last Filed: 05/12/19 18:39> - Progress Note SOAP: I saw and evaluated the patient. Agree with NPP's note. Objective: AF vss abdo: soft/ ND/ tender w/o rebound Assessment: SBO Plan: OR tomorrow if no resolution of symptoms. Pt has resolved non-operatively in the past. No signs of SIRS R/ B/A discussed and pt agrees with plan. <Danny Hui - Last Filed: 05/12/19 19:31>
[2019-05-12] MEDS: Enoxaparin(*) 40 MG/0.4 ML SYR SUBCUT SCH (20:26)
[2019-05-13] MEDS ORDERED: Morphine INJ* 4 MG/ML 1 ML SYRINGE (NEW SYRINGE VERSION) IV ONE (00:15)
[2019-05-13] MEDS ORDERED: Metoclopramide IV* 5 MG/ML 2 ML VIAL IV ONE (00:15)
[2019-05-13] MEDS: NS 0.9% 1000 ML** 1,000 ML IV SCH ×2 (07:58→21:39)
[2019-05-13 08:05] LABS: BUN/Creatinine Ratio 31.5 (8-20); Calcium 8.8 mg/dL (8.6-10.3); EGFR African American 141.8 (>60); EGFR Non-African American 117.2 (>60); Potassium 3.5 mmol/L (3.5-5.0)
--- NOTE | 2019-05-13 09:19 | PN ---
Progress Note - Progress Note Date of Service: 05/13/19 SOAP: Subjective: Pt seen and examined. Pos flatus, loose BM. less abdo pain, no nausea Objective: Temp Pulse Resp BP Pulse Ox 97.9 F 72 15 123/76 98 05/13/19 08:08 05/13/19 08:08 05/13/19 08:08 05/13/19 08:08 05/13/19 08:08 NGT 875 in last shift ( 8hr vs 24?) a and o x3, nad abdo:soft/ ND/ mild tenderness at rlq hypoactive normal pitched BS ext wnl labs noted Assessment: resolving sbo Plan: ngt out npo ivf will faollow today I talked to her about f/u in the office if she should resolve nonoperatively at this episode
--- NOTE | 2019-05-13 09:59 | PN ---
Subjective Date of Service: 05/13/19 Interval History: Pt feels well. Had 850 ml of NG output, but at a fair amount of ice chips. Abd "sore", but passing flatus and had a few loose BM's Objective Active Medications: Enoxaparin Sodium (Lovenox(*)) 40 mg SUBCUT Q24H [facility] Last Admin: 05/12/19 20:26 Dose: 40 mg Sodium Chloride (Ns 0.9% 1000 Ml) 1,000 mls @ 100 mls/hr IV PER RATE [facility] Last Admin: 05/13/19 07:58 Dose: 100 mls/hr Morphine Sulfate (Morphine Inj (Syringe))*) 4 mg IV Q4H PRN PRN Reason: PAIN - SEVERE Last Admin: 05/12/19 20:25 Dose: 4 mg Ondansetron HCl (Zofran Inj*) 4 mg IV Q6H PRN PRN Reason: NAUSEA Last Admin: 05/12/19 20:26 Dose: 4 mg Phenol/Menthol (Chloroseptic Throat [place]*) 2 spray MT Q4H PRN PRN Reason: SORE THROAT Vital Signs - 8 hr 05/13/19 05/13/19 05/13/19 02:29 03:15 07:11 Temperature 98.3 F Pulse Rate 72 Respiratory 16 16 16 Rate Blood Pressure 132/77 (mmHg) O2 Sat by Pulse 98 Oximetry 05/13/19 08:08 Temperature 97.9 F Pulse Rate 72 Respiratory 15 Rate Blood Pressure 123/76 (mmHg) O2 Sat by Pulse 98 Oximetry Oxygen Devices in Use Now: None Appearance: 53 yo F in NAD, AAOx3 Eyes: No Scleral Icterus, PERRLA Ears/Nose/Mouth/Throat: NL Teeth, Lips, Gums, Mucous Membranes Moist Neck: NL Appearance and Movements; NL JVP, Trachea Midline Respiratory: Symmetrical Chest Expansion and Respiratory Effort, Clear to Auscultation Cardiovascular: NL Sounds; No Murmurs; No JVD, RRR Abdominal: - - soft, tender in LUQ , no rebound, no guarding, BS+ Lymphatic: No Cervical Adenopathy Extremities: No Edema, No Clubbing, Cyanosis Skin: No Rash or Ulcers, No Nodules or Sclerosis Neurological: Alert and Oriented x 3, NL Muscle Strength and Tone Result Diagrams: 05/12/19 05:42 05/13/19 07:37 Assess/Plan/Problems-Billing Ms Page is a 53 yo F who has a h/o 2 prior SBOs who presented to the ER with c/o abdominal pain and nausea and was admitted for a SBO. - Patient Problems (1) Small bowel obstruction due to adhesions Comment: Recurrent SBO. As per d/w Dr. Hui. will d/c NG. OK for ice chips and a cup of coffee /day. (2) DVT prophylaxis Comment: ambulation Status and Disposition: Inpatient
[2019-05-13] MEDS: Enoxaparin(*) 40 MG/0.4 ML SYR SUBCUT SCH (21:39)
[2019-05-14] MEDS ORDERED: Acetaminophen TAB* 325 MG PO PRN (10:04)
--- NOTE | 2019-05-14 10:04 | PN ---
Subjective Date of Service: 05/14/19 Interval History: Pt had one coffee yesterday, otherwise on ice chips only. No vomiting. Abd "sore ". Passing flatus and occasionally liquid stool Objective Active Medications: Enoxaparin Sodium (Lovenox(*)) 40 mg SUBCUT Q24H [facility] Last Admin: 05/13/19 21:39 Dose: 40 mg Sodium Chloride (Ns 0.9% 1000 Ml) 1,000 mls @ 100 mls/hr IV PER RATE [facility] Last Admin: 05/13/19 21:39 Dose: 100 mls/hr Morphine Sulfate (Morphine Inj (Syringe))*) 4 mg IV Q4H PRN PRN Reason: PAIN - SEVERE Last Admin: 05/12/19 20:25 Dose: 4 mg Ondansetron HCl (Zofran Inj*) 4 mg IV Q6H PRN PRN Reason: NAUSEA Last Admin: 05/12/19 20:26 Dose: 4 mg Phenol/Menthol (Chloroseptic Throat [place]*) 2 spray MT Q4H PRN PRN Reason: SORE THROAT Vital Signs - 8 hr 05/14/19 05/14/19 07:17 07:55 Temperature 98.3 F Pulse Rate 64 Respiratory 16 16 Rate Blood Pressure 125/70 (mmHg) O2 Sat by Pulse 98 Oximetry Oxygen Devices in Use Now: None Appearance: 53 yo F in nAD, aAOx3 Eyes: No Scleral Icterus, PERRLA Ears/Nose/Mouth/Throat: NL Teeth, Lips, Gums, Mucous Membranes Moist Neck: NL Appearance and Movements; NL JVP, Trachea Midline Respiratory: Symmetrical Chest Expansion and Respiratory Effort, Clear to Auscultation Cardiovascular: NL Sounds; No Murmurs; No JVD, RRR Abdominal: - - very mild diffuse tenderness, no rebound, no guarding, BS+ Extremities: No Edema, No Clubbing, Cyanosis Skin: No Rash or Ulcers, No Nodules or Sclerosis Neurological: Alert and Oriented x 3, NL Muscle Strength and Tone Result Diagrams: 05/12/19 05:42 05/13/19 07:37 Assess/Plan/Problems-Billing Ms Page is a 53 yo F who has a h/o 2 prior SBOs who presented to the ER with c/o abdominal pain and nausea and was admitted for a SBO. - Patient Problems (1) Small bowel obstruction due to adhesions Comment: Recurrent SBO. Awaiting Dr. Hui's recommendations. cont ice chips and a cup of coffee /day. Appears to be improving as expected (2) DVT prophylaxis Comment: ambulation Status and Disposition: Inpatient
[2019-05-14] MEDS: NS 0.9% 1000 ML** 1,000 ML IV SCH (10:43)
--- NOTE | 2019-05-14 10:52 | PN ---
Progress Note - Progress Note Date of Service: 05/14/19 SOAP: Subjective: pt seen and examined Objective: af vss abdo: soft/ ND/ NT hypoactive bs Assessment: resolving sbo Plan: advance diet recall prn pt can follow up in my office for possible DX lap in future- this was discussed with pt
[2019-05-14 15:42] VITALS: BP 112/75
--- NOTE | 2019-05-14 18:46 | DS ---
CC: Dr. Juhi Pereira; Dr. Thai Hui * DISCHARGE SUMMARY: DATE OF ADMISSION: 05/11/19 DATE OF DISCHARGE: 05/14/19 PRIMARY CARE PROVIDER: Dr. Juhi Pereira at [facility]. DISCHARGE DIAGNOSIS: Small-bowel obstruction likely due to adhesions. SECONDARY DIAGNOSES: 1. Recurrent small-bowel obstructions in the past. 2. History of open appendectomy with postoperative complications and prolonged hospital stay. 3. Open left inguinal hernia repair x2. 4. Tonsillectomy. MEDICATIONS AT DISCHARGE: Ibuprofen or Tylenol on a p.r.n. basis. DIAGNOSTIC DATA/LAB DATA: Laboratory Data: On 05/12/19, white blood cell count of 10.8, hemoglobin of 13.9, hematocrit of 41, and platelets of 271. On 05/13/19, sodium of 144, potassium 3.5, chloride 108, carbon dioxide 28, BUN 17 , and creatinine 0.54. CT of abdomen and pelvis obtained on admission. Impression: "Pathologic distention of the small-bowel consistent with high-grade bowel obstruction. No bowel wall thickening or pneumatosis. Small quantity of fluid located in the abdomen and pelvis." CONSULTATION DURING THE HOSPITAL STAY: Included Dr. Hui from surgery. HOSPITALIZATION COURSE: Kallie Page is a 53-year-old female with history of recurrent small-bowel obstructions who presented to hospital complaining once again of abdominal pain. The patient had an NG tube placed during her hospital stay and it was discontinued on 05/13/19. Subsequently, the patient was still able to tolerate clear liquid. Her abdominal wall distention resolved as she was passing flatus and having loose stools. Dr. Hui continued to follow up with the patient on a daily basis and today, the patient was noted to be ready to go home. The recommendation from surgery is to continue liquid diet for another couple of days, then introduce soft diet on day 3, and then advance it as tolerated to regular. For physical exam at the time of discharge, please see daily progress notes. DISCHARGE FOLLOWUP: The patient was recommended to follow up with Dr. Hui in approximately 3 to 4 weeks. The patient is recommended to follow up with her primary care provider in 4 to 7 days. Please note this is a short summary of the patient's hospital stay. Please refer to further medical records for details. DISPOSITION: Discharge to home. CONDITION AT DISCHARGE: Stable. TIME SPENT: Approximately 35 minutes were spent in preparation of the patient' s discharge. [id number]/[facility] #: [id number] [place]
== END 2019-05-14 16:45 | disposition home or self-care (01) | DRG 247 ==
LOC: ED 04:06 → MED 09:18
PROVIDERS: ADMIT Hospitalist; ATTEND Internal Medicine
DX: K56.50 Intestinal adhesions [bands], unspecified as to partial versus complete obstruction (principal); F17.210 Nicotine dependence, cigarettes, uncomplicated; G44.89 Other headache syndrome; Z88.6 Allergy status to analgesic agent; Z82.49 Family history of ischemic heart disease and other diseases of the circulatory system; Z82.3 Family history of stroke
CPT/HCPCS: 36415; 71045; 74018; 74177; 80048; 80053; 81003; 83690; 85025; 85027; 96374; 96375; 96376; 99284; A9270-GY; J0780; J1650; J2270; J2405; J2765; Q9967

== ENCOUNTER 2022-03-16 00:48 | Inpatient (IN) ==
[2022-03-16 02:17] LABS: ABS Lymphocytes 1.1 10^3/ul (1.0-4.8); ABS Monocytes 0.7 10^3/ul (0-0.8); ABS Neutrophils 11.1 10^3/ul (1.5-7.7); Eosinophil % 0.3 %; Hematocrit 42 % (35-47); Hemoglobin 14.2 g/dL (12.0-16.0); Lymphocyte % 8.7 %; Mean Corpuscular HGB Conc 34 g/dL (31-36); Mean Corpuscular Hemoglobin 31 pg (27-31); Mean Corpuscular Volume 91 fL (80-97); Mean Platelet Volume 6.9 fL (7.4-10.4); Platelet Count 341 10^3/uL (150-450); Red Blood Count 4.61 10^6 /uL (3.70-4.87); Red Cell Distribution Width 14 % (10-15)
[2022-03-16] MEDS ORDERED: Ondansetron 4 mg VIAL 2 MG/ML 2 ml VIAL IV ONE (02:22)
[2022-03-16] MEDS ORDERED: Morphine 4 MG/ML VIAL (1 ml) IV ONE (02:22)
[2022-03-16] MEDS ORDERED: Lactated Ringers 1000 ml BAG 1,000 ML IV ONE (02:22)
[2022-03-16 02:47] LABS: Albumin 4.9 g/dL (3.2-5.2); Albumin/Globulin Ratio 1.6 (1-3); C Reactive Protein 1.48 mg/L (<8.01); Calcium 10.8 mg/dL (8.6-10.3); Globulin 3.1 g/dL (2-4); Potassium 3.8 mmol/L (3.5-5.0); Total Bilirubin 0.8 mg/dL (0.2-1.0); eGFR CKD-EPI 89.4 (>60)
[2022-03-16] MEDS ORDERED: Iohexol 350 (CONTRAST) 500 ML MDV IV ONE (03:12)
[2022-03-16] MEDS: Ondansetron 4 mg VIAL 2 MG/ML 2 ml VIAL IV PRN ×2 (05:29→15:55)
[2022-03-16] MEDS ORDERED: Lactated Ringers 1000 ml BAG 1,000 ML IV SCH (06:00)
[2022-03-16 07:50] LABS: Hematocrit 39 % (35-47); Hemoglobin 13.2 g/dL (12.0-16.0); Mean Corpuscular HGB Conc 34 g/dL (31-36); Mean Corpuscular Hemoglobin 31 pg (27-31); Mean Corpuscular Volume 92 fL (80-97); Mean Platelet Volume 6.7 fL (7.4-10.4); Platelet Count 295 10^3/uL (150-450); Red Blood Count 4.23 10^6 /uL (3.70-4.87); Red Cell Distribution Width 14 % (10-15); White Blood Count 10.6 10^3/uL (3.5-10.8)
[2022-03-16 08:41] LABS: Calcium 9.3 mg/dL (8.6-10.3); Magnesium 1.9 mg/dL (1.9-2.7); Potassium 4.1 mmol/L (3.5-5.0); eGFR CKD-EPI 103.6 (>60)
[2022-03-16 09:18] LABS: Urine Appearance Cloudy; Urine Bilirubin Negative (Negative); Urine Blood Negative (Negative); Urine Color Yellow; Urine Glucose Negative (Negative); Urine Ketones Negative (Negative); Urine Nitrite Negative (Negative); Urine Protein Negative (Negative); Urine Specific Gravity 1.032 (1.002-1.030); Urine Urobilinogen Negative (Negative)
[2022-03-16] MEDS ORDERED: Morphine 2 MG/ML SYRINGE IV PRN (09:25)
[2022-03-16] MEDS ORDERED: Acetaminophen IV 1 GM/100ML 1,000 MG/100 ML BAG IV PRN (11:10)
[2022-03-16] MEDS ORDERED: Acetaminophen IV 1 GM/100ML 1,000 MG/100 ML BAG IV ONE ×2 (11:12→21:20)
[2022-03-16] MEDS: Lactated Ringers 1000 ml BAG 1,000 ML IV SCH (22:21)
[2022-03-17] MEDS ORDERED: Acetaminophen IV 1 GM/100ML 1,000 MG/100 ML BAG IV ONE (03:48)
[2022-03-17 05:13] LABS: ABS Lymphocytes 0.8 10^3/ul (1.0-4.8); ABS Monocytes 0.9 10^3/ul (0-0.8); ABS Neutrophils 7.2 10^3/ul (1.5-7.7); Eosinophil % 0.3 %; Hematocrit 39 % (35-47); Lymphocyte % 8.7 %; Mean Corpuscular HGB Conc 34 g/dL (31-36); Mean Corpuscular Hemoglobin 31 pg (27-31); Mean Corpuscular Volume 92 fL (80-97); Mean Platelet Volume 6.7 fL (7.4-10.4); Platelet Count 295 10^3/uL (150-450); Red Blood Count 4.23 10^6 /uL (3.70-4.87); Red Cell Distribution Width 14 % (10-15); White Blood Count 8.9 10^3/uL (3.5-10.8)
[2022-03-17 06:06] LABS: Magnesium 1.9 mg/dL (1.9-2.7); Potassium 3.9 mmol/L (3.5-5.0)
[2022-03-17] MEDS: Lactated Ringers 1000 ml BAG 1,000 ML IV SCH ×2 (10:38→20:59)
[2022-03-17] MEDS ORDERED: Acetaminophen IV 1 GM/100ML 1,000 MG/100 ML BAG IV PRN (11:49)
[2022-03-18 06:09] LABS: ABS Eosinophils 0.1 10^3/ul (0-0.6); ABS Lymphocytes 1.3 10^3/ul (1.0-4.8); ABS Monocytes 0.7 10^3/ul (0-0.8); ABS Neutrophils 4.5 10^3/ul (1.5-7.7); Eosinophil % 1.7 %; Hematocrit 35 % (35-47); Hemoglobin 11.6 g/dL (12.0-16.0); Lymphocyte % 19.5 %; Mean Corpuscular HGB Conc 33 g/dL (31-36); Mean Corpuscular Hemoglobin 31 pg (27-31); Mean Corpuscular Volume 93 fL (80-97); Mean Platelet Volume 7.3 fL (7.4-10.4); Platelet Count 263 10^3/uL (150-450); Red Blood Count 3.76 10^6 /uL (3.70-4.87); Red Cell Distribution Width 14 % (10-15); White Blood Count 6.5 10^3/uL (3.5-10.8)
[2022-03-18 06:27] LABS: Albumin 3.4 g/dL (3.2-5.2); Calcium 8.4 mg/dL (8.6-10.3); Potassium 3.9 mmol/L (3.5-5.0); Total Bilirubin 0.9 mg/dL (0.2-1.0)
[2022-03-18 06:33] LABS: Albumin/Globulin Ratio 1.6 (1-3); Globulin 2.1 g/dL (2-4); Total Protein 5.5 g/dL (6.4-8.9); eGFR CKD-EPI 104.4 (>60)
[2022-03-18] MEDS: Lactated Ringers 1000 ml BAG 1,000 ML IV SCH (08:08)
[2022-03-18] MEDS ORDERED: Lactated Ringers 1000 ml BAG 1,000 ML IV SCH (08:57)
[2022-03-19 11:52] VITALS: BP 105/70
== END 2022-03-19 12:15 | disposition home or self-care (01) | DRG 247 ==
LOC: ED 00:48 → EDHOLD 00:48 → SUATTDRO 04:37 → MED 19:13 → SUATTDRO 03-17 14:01
PROVIDERS: ADMIT Internal Medicine; ATTEND Internal Medicine